=== PATIENT | male | born 1955 | race Caucasian/White ===

== ENCOUNTER 2020-03-21 18:04 | Emergency (ER) | payer MEDICARE, SELFPAY ==
[2020-03-21 18:12] VITALS: BP 152/72; PULSE 105; RESP 16; TEMP 38.5; O2SAT 95; BMI 27.8
--- NOTE | 2020-03-21 18:22 | DI.RAD.S_ITS ---
PROCEDURE: XR CHEST 1V INDICATIONS: suspected sepsis TECHNIQUE: One view of the chest was acquired. COMPARISON: [facility], , CHEST 1 VIEW, 07/27/2015, 21:59. FINDINGS: Surgical changes and devices: None. Lungs and pleura: Lungs are clear. No pleural effusions or pneumothorax. Mediastinum: Mediastinal contours appear normal. Heart size is normal. Remote CABG. Bones and chest wall: No suspicious bony lesions. Overlying soft tissues appear unremarkable. IMPRESSION: Remote CABG. No evidence acute pulmonary process. Dictated by: Bernard Decker M.D. on 03/21/2020 at 18:46 Approved by: Bernard Decker M.D. on 03/21/2020 at 18:47
--- NOTE | 2020-03-21 18:24 | DI.RAD.S_ITS ---
PROCEDURE: XR ELBOW RT MIN 3V INDICATIONS: injured, pain, swelling TECHNIQUE: 3 views of the elbow were acquired. COMPARISON: None. FINDINGS: Bones: No fractures or dislocations. No suspicious bony lesions. Mild degenerative change. Soft tissues: No elbow joint effusion. No suspicious soft tissue calcifications. IMPRESSION: Mild degenerative change. No evidence acute bony abnormality of the right elbow. If clinical suspicion and/or symptoms persist, further assessment with repeat plain films, or advanced imaging (e.g., CT, MRI, or bone scan) may be helpful for further assessment. Dictated by: Bernard Decker M.D. on 03/21/2020 at 18:45 Approved by: Bernard Decker M.D. on 03/21/2020 at 18:46
--- NOTE | 2020-03-21 19:08 | ED.SKABFB ---
HPI - Skin/Abscess/Foreign Bdy General Chief complaint: Skin/Abscess/Foreign Body Stated complaint: large mass swelling R elbow, fever Time Seen by Provider: 03/21/20 18:07 Source: patient Mode of arrival: Ambulatory Limitations: no limitations History of Present Illness HPI narrative: 65-year-old male the history of a heart transplant. Is on anti-rejection medications. Has a history of bursitis in his elbows. States that he bumped his right elbow a couple days ago and since that time has been progressively worsening right elbow swelling and redness. He also having low-grade fever. Came to the emergency department for evaluation. Has not tried anything for symptoms prior to arrival Review of Systems Constitutional Constitutional: Denies fatigue and Reports fever(s) Cardiovascular Cardiovascular: Denies chest pain and Denies dyspnea Respiratory Respiratory: Denies dyspnea Gastrointestinal Gastrointestinal: Denies abdominal pain Musculoskeletal Musculoskeletal: Denies tingling Comments: Swelling the right elbow Integumentary/Breasts Skin/Breast: Denies lesions and Denies rash Neurologic Neurologic: Denies behavioral changes and Denies tingling Psychiatric Psychiatric: Denies behavioral changes Endocrine Endocrine: Denies fatigue Hematologic/Lymphatic Hematologic/Lymphatic: Denies easy bleeding and Denies easy bruising Allergic/Immunologic Allergic/Immunologic: Denies urticaria Patient History Medical History (Updated 03/21/20 @ 21:39 by Alex Darnell DO) CHF (congestive heart failure), NYHA class IV (Inactive) Diarrhea (Inactive) Fever (Inactive) Heart transplant recipient (Acute) Lymphadenopathy, anterior cervical (Inactive) Social History Smoking Status: Former smoker Smoking Status: Former smoker Substance Use Type: does not use Exam Initial Vital Signs Initial Vital Signs: Vital Signs Temperature 101.3 F H 03/21/20 18:12 Pulse Rate 105 H 03/21/20 18:12 Respiratory Rate 16 03/21/20 18:12 Blood Pressure 152/72 H 03/21/20 18:12 Pulse Oximetry 95 03/21/20 18:12 Const General: comfortable Limitations: mental status not altered HENMT Head: normal to inspection and normocephalic Resp Effort & Inspection: normal respiratory effort Cardio Rate: tachycardic GI Inspection: non-distended Skin Other: Mild redness over the right olecranon Neuro General: patient alert and patient awake Cognition: normal cognition Speech: speech normal Extrem General: normal to inspection and capillary refill normal Other: Patient with significant swelling over the right olecranon bursa consistent with bursitis. Psych Appearance: grossly normal and well kempt Scores GCS [place] coma scale eye opening: Spontaneous [place] coma scale verbal response: Orientated [place] coma scale motor response: Obey commands [place] coma scale total score: 15 Course Orders Ordered: ED Orders 03/21/20 18:22 XR chest 1V Stat EKG-12 Lead Stat RT Consult Eval and Treat Now 03/21/20 18:24 XR elbow RT min 3V Stat 03/21/20 19:23 Complete Blood Count AUTO DIFF Stat Comprehensive Metabolic Panel Stat Lactate (Lactic Acid) Stat Lipase Stat Partial Thromboplastin Time Stat Procalcitonin Stat Prothrombin Time INR Stat 03/21/20 19:56 Blood Culture Stat Discontinued Medications Sodium Chloride (Normal Saline 0.9%) 1,000 mls @ 1,000 mls/hr IV BOLUS ONE Stop: 03/21/20 19:21 Last Infusion: 03/21/20 21:13 Dose: 0 mls/hr Documented by: Admin: 03/21/20 19:41 Dose: 1,000 mls/hr Documented by: GAGANDEEP Ceftriaxone Sodium/Dextrose (Rocephin) 1 gm in 50 mls @ 100 mls/hr IV NOW ONE Stop: 03/21/20 19:38 Last Infusion: 03/21/20 20:08 Dose: 0 mls/hr Documented by: Admin: 03/21/20 19:41 Dose: 100 mls/hr Documented by: GAGANDEEP Vancomycin HCl (Vancomycin) 1,000 mg in 200 mls @ 200 mls/hr IV NOW ONE Stop: 03/21/20 20:07 Last Infusion: 03/21/20 21:19 Dose: 0 mls/hr Documented by: Admin: 03/21/20 20:16 Dose: 200 mls/hr Documented by: GAGANDEEP Vital Signs Vital signs: Vital Signs - 8 hr 03/21/20 18:12 03/21/20 20:10 03/21/20 20:30 Temperature 101.3 F H Pulse Rate 105 H 100 H 109 H Respiratory Rate 16 14 36 H Blood Pressure 152/72 H Pulse Oximetry 95 94 95 03/21/20 21:00 03/21/20 21:02 03/21/20 21:04 Temperature Pulse Rate 104 H 106 H 106 H Respiratory Rate 14 24 16 Blood Pressure 151/76 H Pulse Oximetry 94 93 95 MDM - Skin/Abscess/Foreign Bdy Lab Data Attestation: I reviewed the patient's lab results. Result diagrams: 03/21/20 19:23 03/21/20 19:23 Labs: Lab Results 03/21/20 03/21/20 03/21/20 Range/Units 19:23 19:23 19:23 WBC 8.7 (4.5-11.0) X10^3/uL RBC 3.54 L (4.5-5.9) X10^6/uL Hgb 11.8 L (13.5-17.5) g/dL Hct 35.7 L (41-53) % MCV 100.8 H (80-100) fL MCH 33.4 (26-34) PG MCHC 33.1 (30-36) % RDW 14.5 (11.6-14.8) % Plt Count 127 L (150-400) X10^3/uL Neut % (Auto) 84.3 H (50-75) % Lymph % (Auto) 5.2 L (25-40) % [place] % (Auto) 9.1 (3-14) % Eos % (Auto) 0.7 L (2-4) % Baso % (Auto) 0.7 (0-2) % Neut # (Auto) 7300 H (6029-1785) /uL Lymph # (Auto) 500 L (4108-6598) /uL [place] # (Auto) 800 (0-900) /uL Eos # (Auto) 100 (0-450) /uL Baso # (Auto) 100 (0-100) /uL PT 12.2 (10.1-12.7) SECONDS INR 1.1 (0.9-1.3) APTT 31 (26.4-36.2) SECONDS Sodium (137-145) mmol/L Potassium (3.4-5.1) mmol/L Chloride (98-107) mmol/L Carbon Dioxide (22-32) mmol/L BUN (9-20) mg/dL Creatinine (0.66-1.25) mg/dL Estimated GFR (>60) mL/min BUN/Creatinine Ratio (6-22) Glucose (80-110) mg/dL Lactate (0.7-2.1) mmol/L Calcium (8.4-10.2) mg/dL Total Bilirubin (0.2-1.3) mg/dL AST (17-59) IU/L ALT (<50) IU/L Alkaline Phosphatase (38-126) U/L Total Protein (6.3-8.2) g/dL Albumin (3.5-5.0) g/dL Globulin (1.7-4.1) g/dL Albumin/Globulin Ratio (1.0-2.8) Lipase (23-300) U/L Procalcitonin 0.17 (<0.5) ng/mL 03/21/20 03/21/20 Range/Units 19:23 19:23 WBC (4.5-11.0) X10^3/uL RBC (4.5-5.9) X10^6/uL Hgb (13.5-17.5) g/dL Hct (41-53) % MCV (80-100) fL MCH (26-34) PG MCHC (30-36) % RDW (11.6-14.8) % Plt Count (150-400) X10^3/uL Neut % (Auto) (50-75) % Lymph % (Auto) (25-40) % [place] % (Auto) (3-14) % Eos % (Auto) (2-4) % Baso % (Auto) (0-2) % Neut # (Auto) (5807-0571) /uL Lymph # (Auto) (0236-8008) /uL [place] # (Auto) (0-900) /uL Eos # (Auto) (0-450) /uL Baso # (Auto) (0-100) /uL PT (10.1-12.7) SECONDS INR (0.9-1.3) APTT (26.4-36.2) SECONDS Sodium 134 L (137-145) mmol/L Potassium 3.5 (3.4-5.1) mmol/L Chloride 98 (98-107) mmol/L Carbon Dioxide 28 (22-32) mmol/L BUN 20 (9-20) mg/dL Creatinine 1.30 H (0.66-1.25) mg/dL Estimated GFR 55.2 L (>60) mL/min BUN/Creatinine Ratio 15.4 (6-22) Glucose 115 H (80-110) mg/dL Lactate 1.3 (0.7-2.1) mmol/L Calcium 8.9 (8.4-10.2) mg/dL Total Bilirubin 1.6 H (0.2-1.3) mg/dL AST 52 (17-59) IU/L ALT 75 H (<50) IU/L Alkaline Phosphatase 76 (38-126) U/L Total Protein 7.7 (6.3-8.2) g/dL Albumin 4.6 (3.5-5.0) g/dL Globulin 3.1 (1.7-4.1) g/dL Albumin/Globulin Ratio 1.5 (1.0-2.8) Lipase 22 L (23-300) U/L Procalcitonin (<0.5) ng/mL Urine Dip Bedside Urine Glucose Negative Bedside Urine Bilirubin - Negative Bedside Urine Ketone +/- 5 Urine Specific [place] 1.010 Bedside Urine Occult Blood - Negative Bedside Urine pH 7.0 Bedside Urine Protein - Negative Bedside Urine Urobilinogen - Negative Bedside Urine Nitrite - Negative Bedside Urine Leukocytes - Negative Esterase Imaging Data Extremity x-ray #1: Radiologist's Impression: [address] [address] XRay Report Signed Patient: Ben Montgomery LMR#: [id number] : 4Acct:[id number] Age/Sex: 65 / MDate of Service: 03/21/20 Loc: ED Accession Number: [id number] Procedure: XR elbow RT min 3V Ordering Provider: Alex Darnell D.O. PROCEDURE: XR ELBOW RT MIN 3V INDICATIONS: injured, pain, swelling TECHNIQUE: 3 views of the elbow were acquired. COMPARISON: None. FINDINGS: Bones: No fractures or dislocations. No suspicious bony lesions. Mild degenerative change. Soft tissues: No elbow joint effusion. No suspicious soft tissue calcifications. IMPRESSION: Mild degenerative change. No evidence acute bony abnormality of the right elbow. If clinical suspicion and/or symptoms persist, further assessment with repeat plain films, or advanced imaging (e.g., CT, MRI, or bone scan) may be helpful for further assessment. Dictated by: Bernard Decker M.D. on 03/21/2020 at 18:45 Approved by: Bernard Decker M.D. on 03/21/2020 at 18:46 Chest x-ray: Radiologist's Impression: [address] [address] XRay Report Signed Patient: Ben Montgomery LMR#: [id number] : 4Acct:[id number] Age/Sex: 65 / MDate of Service: 03/21/20 Loc: ED Accession Number: [id number] Procedure: XR chest 1V Ordering Provider: Alex Darnell D.O. PROCEDURE: XR CHEST 1V INDICATIONS: suspected sepsis TECHNIQUE: One view of the chest was acquired. COMPARISON: [facility], CHEST 1 VIEW, 07/27/2015, 21:59. FINDINGS: Surgical changes and devices: None. Lungs and pleura: Lungs are clear. No pleural effusions or pneumothorax. Mediastinum: Mediastinal contours appear normal. Heart size is normal. Remote CABG. Bones and chest wall: No suspicious bony lesions. Overlying soft tissues appear unremarkable. IMPRESSION: Remote CABG. No evidence acute pulmonary process. Dictated by: Bernard Decker M.D. on 03/21/2020 at 18:46 Approved by: Bernard Decker M.D. on 03/21/2020 at 18:47 ECG Data Attestation: I personally reviewed and interpreted this ECG as follows: Prior ECG tracings: not available for review Interpretation: Sinus tachycardia Ventricular rate 104 Normal axis Normal QRS Normal QTC No ST T wave changes MDM Narrative Medical decision making narrative: Patient is immunocompromised given his heart transplant status. Was tachycardic, febrile, has what appears to be a bursitis over his right elbow. Given the rest of his vital sign results I do suspect that this is a septic bursitis. I have no other source of infection for the patient. Initially had a difficult time convincing the patient that he needed a IV in broad-spectrum antibiotics. We did discuss his risks given his heart transplant. I did discuss the case with Dr. Glover with the cardiology transplant service at the [facility] who agrees that the patient should have lab works and broad-spectrum antibiotics and cultures obtained. He also agrees the patient should be transferred to their facility for further evaluation. Started vancomycin and Rocephin. Will hold on any drainage of the bursa further concern of potentially causing worsening problems and introducing infection to the area. I did discuss this with Dr. Glover who acknowledge that we would wait for him to arrived at their facility before this is performed. I did discuss the need for the transfer with the patient. Patient stated that he was not going to be transferred by ambulance. He states that he was either going to drive on his own or not go at all. We did discuss the risks and benefits of this. I feel that it is most informed for him to arrive at the facility that can handle his issues and has a transplant service so I will all the patient drive by private vehicle. His IV was removed. He did receive his antibiotics prior to being discharged. He was given instructions on where to arrive. He was alert oriented x3. My. Has the capacity make decisions. GCS 15. Discharge Plan Departure Patient Disposition: [facility] Clinical Impression: Sepsis, Bursitis
[2020-03-21 19:35] LABS: Add Manual Diff / Slide Review NO; Basophils Absolute Auto 100 /uL (0-100); Basophils Percent Auto 0.7 % (0-2); Eosinophils Absolute Auto 100 /uL (0-450); Eosinophils Percent Auto 0.7 % (2-4); Hematocrit 35.7 % (41-53); Hemoglobin 11.8 g/dL (13.5-17.5); Lymphocytes Absolute Auto 500 /uL (1100-4500); Lymphocytes Percent Auto 5.2 % (25-40); Mean Corpuscular HGB Conc 33.1 % (30-36); Mean Corpuscular Hemoglobin 33.4 PG (26-34); Mean Corpuscular Volume 100.8 fL (80-100); Monocytes Absolute Auto 800 /uL (0-900); Monocytes Percent Auto 9.1 % (3-14); Neutrophils Absolute Auto 7300 /uL (1500-7000); Neutrophils Percent Auto 84.3 % (50-75); Platelet Count 127 X10^3/uL (150-400); Red Blood Cell Count 3.54 X10^6/uL (4.5-5.9); Red Cell Distribution Width 14.5 % (11.6-14.8); White Blood Cell Count 8.7 X10^3/uL (4.5-11.0)
[2020-03-21] MEDS: CEFTRIAXONE 1 GM/50 ML FROZ.PIGGY IV (19:41)
[2020-03-21] MEDS: SODIUM CHLORIDE 0.9% 1,000 ML 1000 ML IV (19:41)
[2020-03-21 19:46] LABS: INR 1.1 (0.9-1.3); Prothrombin Time 12.2 SECONDS (10.1-12.7)
[2020-03-21 19:48] LABS: PTT Partial Thromboplastin Tim 31 SECONDS (26.4-36.2)
[2020-03-21 19:51] LABS: Lactate (Lactic Acid) 1.3 mmol/L (0.7-2.1)
[2020-03-21 19:52] LABS: Alanine Aminotransferase 75 IU/L (<50); Albumin 4.6 g/dL (3.5-5.0); Albumin Globulin Ratio 1.5 (1.0-2.8); Alkaline Phosphatase 76 U/L (38-126); Aspartate Aminotransferase 52 IU/L (17-59); BUN Creatinine Ratio 15.4 (6-22); Bilirubin Total 1.6 mg/dL (0.2-1.3); Blood Urea Nitrogen 20 mg/dL (9-20); Calcium 8.9 mg/dL (8.4-10.2); Carbon Dioxide 28 mmol/L (22-32); Chloride 98 mmol/L (98-107); Estimated Glomerular Filt Rate 55.2 mL/min (>60); Globulin 3.1 g/dL (1.7-4.1); Glucose 115 mg/dL (80-110); HEMOLYSIS 27 (0-50); Lipase 22 U/L (23-300); Potassium 3.5 mmol/L (3.4-5.1); Sodium 134 mmol/L (137-145); Total Protein 7.7 g/dL (6.3-8.2)
[2020-03-21 20:07] LABS: Procalcitonin 0.17 ng/mL (<0.5)
[2020-03-21 20:10] VITALS: PULSE 100; RESP 14; O2SAT 94
[2020-03-21] MEDS: VANCOMYCIN 1,000 MG/200 ML PIGGYBACK 200 MG IV (20:16)
[2020-03-21 20:30] VITALS: PULSE 109; RESP 36; O2SAT 95
[2020-03-21 21:00] VITALS: PULSE 104; RESP 14; O2SAT 94
[2020-03-21 21:02] VITALS: PULSE 106; RESP 24; O2SAT 93
[2020-03-21 21:04] VITALS: BP 151/76; PULSE 106; RESP 16; O2SAT 95
[2020-03-21 21:53] LABS: COVID19 -Nasal RAPID Negative (Negative)
== END 2020-03-21 22:26 | disposition short-term general hospital (02) ==
PROVIDERS: Emergency Provider Emergency Medicine
DX: M70.31 Other bursitis of elbow, right elbow (principal); R00.0 Tachycardia, unspecified; Z94.1 Heart transplant status
CPT/HCPCS: 36415; 71045; 73080; 80053; 81003; 83605; 83690; 84145; 85025; 85610; 85730; 87040; 87635; 93005; 93010; 96365; 96367; 99284

== ENCOUNTER 2021-06-17 19:08 | Emergency (ER) | payer MEDICARE, SELFPAY ==
[2021-06-17 19:24] VITALS: BP 163/95; PULSE 88; RESP 17; TEMP 36.5; O2SAT 97; BMI 29.1
--- NOTE | 2021-06-17 19:26 | DI.RAD.S_ITS ---
PROCEDURE: XR CHEST 1V INDICATIONS: chest pain TECHNIQUE: One view of the chest was acquired. COMPARISON: [facility], CR, XR CHEST 1V, 03/21/2020, 18:17. FINDINGS: Surgical changes and devices: Sternotomy wires. 1.5 cm Tubular/linear density projecting in the left upper hemithorax of unknown etiology although unchanged since 03/21/20. Lungs and pleura: Lungs are clear. No pleural effusions or pneumothorax. Mediastinum: Mediastinal contours appear normal. Heart size is normal. Bones and chest wall: No suspicious bony lesions. Overlying soft tissues appear unremarkable. IMPRESSION: No acute disease. No interval change. Dictated by: Sunny Negron M.D. on 06/17/2021 at 20:06 Approved by: Sunny Negron M.D. on 06/17/2021 at 20:07
[2021-06-17 19:54] LABS: Add Manual Diff / Slide Review NO; Basophils Absolute Auto 0 /uL (0-100); Basophils Percent Auto 0.6 % (0-2); Eosinophils Absolute Auto 100 /uL (0-450); Eosinophils Percent Auto 2.1 % (2-4); Hematocrit 42.6 % (41-53); Lymphocytes Absolute Auto 900 /uL (1100-4500); Lymphocytes Percent Auto 19.6 % (25-40); Mean Corpuscular HGB Conc 32.8 % (30-36); Mean Corpuscular Hemoglobin 33.1 PG (26-34); Mean Corpuscular Volume 100.9 fL (80-100); Monocytes Absolute Auto 600 /uL (0-900); Monocytes Percent Auto 13.6 % (3-14); Neutrophils Absolute Auto 2800 /uL (1500-7000); Neutrophils Percent Auto 64.1 % (50-75); Platelet Count 128 X10^3/uL (150-400); Red Blood Cell Count 4.22 X10^6/uL (4.5-5.9); Red Cell Distribution Width 14.7 % (11.6-14.8); White Blood Cell Count 4.4 X10^3/uL (4.5-11.0)
[2021-06-17 20:03] LABS: Alanine Aminotransferase 78 IU/L (<50); Albumin 4.7 g/dL (3.5-5.0); Albumin Globulin Ratio 1.6 (1.0-2.8); Alkaline Phosphatase 72 U/L (38-126); Aspartate Aminotransferase 70 IU/L (17-59); Blood Urea Nitrogen 23 mg/dL (9-20); Calcium 9.3 mg/dL (8.4-10.2); Carbon Dioxide 29 mmol/L (22-32); Chloride 108 mmol/L (98-107); Creatine Kinase 130 U/L (55-170); Estimated Glomerular Filt Rate 45.6 mL/min (>60); Glucose 87 mg/dL (80-110); HEMOLYSIS < 15 (0-50); Lipase 57 U/L (23-300); Potassium 4.5 mmol/L (3.4-5.1); Sodium 144 mmol/L (137-145); Total Protein 7.7 g/dL (6.3-8.2)
[2021-06-17 20:14] LABS: Troponin I < 0.012 ng/mL (0.01-0.034)
[2021-06-17 20:17] LABS: CKMB % Relative Index 1.9 % (1.5-5.0); Creatine Kinase MB 2.44 ng/mL (<2.37)
[2021-06-17 21:35] VITALS: BP 159/90; O2SAT 96
[2021-06-17 22:43] VITALS: BP 149/78; PULSE 83; RESP 16; O2SAT 96
--- NOTE | 2021-06-17 23:56 | ED_ITS ---
HPI - Chest Pain General Chief Complaint: Chest Pain Stated Complaint: chest pain, hx of heart transplant Time Seen by Provider: 06/17/21 23:55 Source: patient Mode of arrival: Ambulatory Limitations: no limitations History of Present Illness HPI narrative: This is a 66-year-old male comes in with complaint of left arm pain. Swelling that occurred after getting his hand stuck and having a twisting motion while p ronating against a hard object having a snap at the elbow he developed quite a bit of swelling, bruising and pain that has slowly subsided. There is a large lump that has never resolved. Patient had what like a large hematoma that has been slowly decreasing in size but is still present and mildly tender. He still also has some ecchymosis on the underside of his arm. Has normal range of motion he has not appreciate any new weakness. Occasionally some tingling. Patient states he does have some discomfort in that left arm and saw his primary care who told him he snapped tendon. Patient also notes that he has had a little bit of chest discomfort at times. He states sometimes it seems to be coming up from the left arm to his chest. 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 Patient had aspirin daily. He sees his heart transplant physician at the [facility] on Wednesday. Related Data Allergies Allergy/AdvReac Type Severity Reaction Status Date / Time Iodinated Contrast Media AdvReac Verified 06/17/21 19:23 Review of Systems Review of Systems ROS Unobtainable: All systems reviewed & are unremarkable except as noted in HPI and below Patient History Medical History CHF (congestive heart failure), NYHA class IV Diarrhea Fever Heart transplant recipient Lymphadenopathy, anterior cervical Social History Smoking Status: Former smoker Smoking Status: Former smoker alcohol intake frequency: a few times a week Alcohol type: beer Substance Use Type: does not use Exam Narrative Exam Narrative: GENERAL: Alert and oriented x three, male in mild distress. HEENT: Head normocephalic, atraumatic, EOMI, pupils reactive, face symmetric, moist mucous membranes NECK: Supple, full range of motion CARDIOVASCULAR: Regular rate and rhythm without murmurs, rubs or gallops. RESPIRATORY: Breath sounds equal bilaterally, no wheezes rales or rhonchi. ABDOMEN: Soft, nontender. Normoactive bowel sounds all 4 quadrants. No guarding or rebound, rigidity, no mass : No CVA tenderness EXTREMITIES: Normal range of motion, no clubbing or edema. Neurovascularly intact. Patient has a large knot over the proximal forearm close to the insertion of the tendon on the dorsum. There is some ecchymotic discoloration and the area is nontender, somewhat hard and seems most consistent with hematoma but may also be attended. Patient has normal range of motion without any weakne ss. He has full range of motion except for his 5th finger which he states is perpetually is flexed secondary to Dupuytren's. Patient also has ecchymosis on the palmar side of his forearm that appears to be in the later stages healing. He has no other tenderness. 2+ radial pulses bilaterally. Good test automation architect bilaterally. NEUROLOGICAL: Cranial nerves II through XII grossly intact. Moving all extrem ities SKIN: Warm, dry, no petechiae, no rashes or lesions otherwise noted. Initial Vital Signs Initial Vital Signs: Vital Signs Temperature 97.7 F 06/17/21 19:24 Pulse Rate 88 06/17/21 19:24 Respiratory Rate 17 06/17/21 19:24 Blood Pressure 163/95 H 06/17/21 19:24 Pulse Oximetry 97 06/17/21 19:24 Course Orders Ordered: ED Orders 06/17/21 23:59 Troponin I Stat Vital Signs Vital signs: Vital Signs - 8 hr 06/18/21 00:41 06/18/21 00:42 Pulse Rate 78 79 Respiratory Rate 13 Blood Pressure 159/93 H Pulse Oximetry 95 96 MDM - Chest Pain Lab Data Result diagrams: 06/17/21 19:41 06/17/21 19:41 Labs: Lab Results 06/17/21 06/17/21 06/17/21 Range/Units 19:41 19:41 23:59 WBC 4.4 L (4.5-11.0) X10^3/uL RBC 4.22 L (4.5-5.9) X10^6/uL Hgb 14.0 (13.5-17.5) g/dL Hct 42.6 (41-53) % MCV 100.9 H (80-100) fL MCH 33.1 (26-34) PG MCHC 32.8 (30-36) % RDW 14.7 (11.6-14.8) % Plt Count 128 L (150-400) X10^3/uL Neut % (Auto) 64.1 (50-75) % Lymph % (Auto) 19.6 L (25-40) % [place] % (Auto) 13.6 (3-14) % Eos % (Auto) 2.1 (2-4) % Baso % (Auto) 0.6 (0-2) % Neut # (Auto) 2800 (4019-7597) /uL Lymph # (Auto) 900 L (3900-9358) /uL [place] # (Auto) 600 (0-900) /uL Eos # (Auto) 100 (0-450) /uL Baso # (Auto) 0 (0-100) /uL Sodium 144 (137-145) mmol/L Potassium 4.5 (3.4-5.1) mmol/L Chloride 108 H (98-107) mmol/L Carbon Dioxide 29 (22-32) mmol/L BUN 23 H (9-20) mg/dL Creatinine 1.53 H (0.66-1.25) mg/dL Estimated GFR 45.6 L (>60) mL/min BUN/Creatinine Ratio 15.0 (6-22) Glucose 87 (80-110) mg/dL Calcium 9.3 (8.4-10.2) mg/dL Total Bilirubin 1.0 (0.2-1.3) mg/dL AST 70 H (17-59) IU/L ALT 78 H (<50) IU/L Alkaline Phosphatase 72 (38-126) U/L Total Creatine Kinase 130 (55-170) U/L CK-MB (CK-2) 2.44 H (<2.37) ng/mL CK-MB (CK-2) Rel Index 1.9 (1.5-5.0) % Troponin I < 0.012 < 0.012 (0.01-0.034) ng/mL Total Protein 7.7 (6.3-8.2) g/dL Albumin 4.7 (3.5-5.0) g/dL Globulin 3.0 (1.7-4.1) g/dL Albumin/Globulin Ratio 1.6 (1.0-2.8) Lipase 57 (23-300) U/L Imaging Data Chest x-ray: Radiologist's Impression: [address] [address] XRay Report Signed Patient: Ben Montgomery MR#: [id number] : 1955 Acct:[id number] Age/Sex: 66 / M Date of Service: 06/17/21 Loc: ED Accession Number: [id number] ?? Procedure: XR chest 1V Ordering Provider: Yuli Pope D.O. PROCEDURE:? XR CHEST 1V ? INDICATIONS:? chest pain ? TECHNIQUE:? One view of the chest was acquired.? ? COMPARISON:? [facility], CR, XR CHEST 1V, 03/21/2020, 18:17. ? FINDINGS:? ? Surgical changes and devices:? Sternotomy wires.? 1.5 cm Tubular/linear density projecting in the left upper hemithorax of unknown etiology although unchanged since 03/21/20. ? Lungs and pleura:? Lungs are clear.? No pleural effusions or pneumothorax.? ? Mediastinum:? Mediastinal contours appear normal.? Heart size is normal.? ? Bones and chest wall:? No suspicious bony lesions.? Overlying soft tissues appear unremarkable.? ? IMPRESSION:? No acute disease.? No interval change. ? Dictated by: Sunny Negron M.D. on 06/17/2021 at 20:06 ? ? Approved by: Sunny Negron M.D. on 06/17/2021 at 20:07? ECG Data Attestation: I personally reviewed and interpreted this ECG as follows: Interpretation: Sinus rhythm rate 89 AL 162 QRS 82 and QTC of 423. No acute ST changes appreciated. EKG 2. Rate of 78 AL 176 QRS of 90 QTC of 428. No acute ST changes appreciated. MDM Narrative Medical decision making narrative: This is a 66-year-old male who comes emergency department complaint of chest pain but also complained of some extremity pain. Patient had a injury to his forearm and was told that he likely injury to tendon or ligament or snapped the muscle belly. Patient does have a lump that seems more consistent with hematoma but could possibly and is in the right location for injury to the muscle or tendon itself. Patient has been following for this. He noted some mild discomfort in his chest intermittently but not persistently in his somewhat atypical. He seems more focused on his upper extremity today. Labs and EKG do not show acute changes. Chest x-ray does not show any major changes. He has short-term follow-up with his heart transplant team and at this time he would like to return home. Return precautions were discussed with patient. All questions answered. Discharge Plan Departure Patient Disposition: Home Clinical Impression: Atypical chest pain, Traumatic hematoma of left forearm Instructions: DI for Atypical Chest Pain Activity Restrictions/Additional Instructions: Follow-up with your heart transplant team at your scheduled appointment on Wednesday. The spot on your arm is likely a hematoma although this is an appropriate location to have an injured tendon but typically patients will have weakness or more difficulty with movement. It would be appropriate to follow-up with orthopedic surgery if you notice that your having issues. Referral is included below. Please return for new or worsening chest pain, shortness of breath, worsening swelling of her arm, new swelling of your arm or hand, weakness or difficulty with movement or other new or concerning symptoms. Referrals: Piyush Romero MD [Physician] -
[2021-06-18 00:41] VITALS: PULSE 78; O2SAT 95
[2021-06-18 00:42] VITALS: BP 159/93; PULSE 79; RESP 13; O2SAT 96
[2021-06-18 00:42] LABS: Troponin I < 0.012 ng/mL (0.01-0.034)
--- NOTE | 2021-06-18 01:02 | PC.NURSE ---
Patient reports hx of heart transplant. 3 days chest dull ache, so bad today that he thought he might pass out in grocery store. Patient is pain free at this time.
== END 2021-06-18 01:07 | disposition home or self-care (01) ==
PROVIDERS: Emergency Provider Emergency Medicine
DX: R07.89 Other chest pain (principal); S50.02XA Contusion of left elbow, initial encounter; X50.1XXA Overexertion from prolonged static or awkward postures, initial encounter; Z94.1 Heart transplant status; Z95.0 Presence of cardiac pacemaker
CPT/HCPCS: 36415; 71045; 80053; 82550; 82553; 83690; 84484; 85025; 93005; 99284

== ENCOUNTER 2022-12-27 02:35 | Emergency (ER) | payer MEDICARE, SELFPAY ==
[2022-12-27] VITALS (8 sets, daily range): BP systolic 141–189; BP diastolic 65–93; PULSE 70–86; RESP 9–22; O2SAT 92–100
--- NOTE | 2022-12-27 02:52 | ED.GENADULT ---
HPI - General Adult General Chief complaint: Dizziness Stated complaint: Heart Issue Time Seen by Provider: 12/27/22 02:45 Source: patient and family Mode of arrival: Ambulatory History of Present Illness HPI narrative: Patient is a 67-year-old male. He is a heart transplant recipient. Is here for evaluation of what he describes as dizziness and being unsteady on his feet. He is not having chest pain no shortness of breath. No sinus congestion. No sore throat. No headache. He states that he has had some fullness in his left ear and some decreased hearing over the past day or so. Yesterday he states that he was at work and he felt somewhat dizzy. He does somewhat describe it as a room spinning sensation and then other times more just a lightheadedness. He actually had to come home from work and laid down on the couch. No upper lower extremity tingling or weakness. This evening he got up to go to the bathroom and he states he could not walk straight. Is also very nauseous. It is somewhat positional. Related Data Previous Rx's Medication Instructions Recorded meclizine 25 mg tablet 25 mg PO BID PRN dizziness #20 tabs 12/27/22 Allergies Allergy/AdvReac Type Severity Reaction Status Date / Time Iodinated Contrast Media AdvReac Verified 06/17/21 19:23 Review of Systems Constitutional Constitutional: Reports system reviewed and no additional complaints, except as documented ENT Ears, Nose, Mouth, and Throat: Reports system reviewed and no additional complaints, except as documented Cardiovascular Cardiovascular: Reports system reviewed and no additional complaints, except as documented Respiratory Respiratory: Reports system reviewed and no additional complaints, except as documented Gastrointestinal Gastrointestinal: Reports system reviewed and no additional complaints, except as documented Integumentary/Breasts Skin/Breast: Reports system reviewed and no additional complaints, except as documented Neurologic Neurologic: Reports system reviewed and no additional complaints, except as documented Patient History Medical History CHF (congestive heart failure), NYHA class IV Diarrhea Fever Heart transplant recipient Lymphadenopathy, anterior cervical Social History Smoking Status: Former smoker Smoking Status: Former smoker alcohol intake frequency: a few times a week Alcohol type: beer Substance Use Type: does not use Exam Initial Vital Signs Initial Vital Signs: Vital Signs Pulse Rate 80 12/27/22 02:44 Respiratory Rate 22 12/27/22 02:44 Blood Pressure 189/93 H 12/27/22 02:44 Pulse Oximetry 100 12/27/22 02:44 Oxygen Delivery Method Room Air 12/27/22 02:44 HENNM Head: normal to inspection and normocephalic Ears: TM's normal bilaterally Face and sinus: normal facial exam Mouth: oral mucosae normal Chest Chest: normal inspection of the chest Resp Auscultation: clear to auscultation bilaterally Percussion: percussion normal Cardio Rate: regular rate Skin General: no rashes or lesions noted Neuro General: patient alert, patient awake, patient oriented x3 and moves all extremities Speech: speech normal Gait: normal gait Extrem General: capillary refill normal Course Orders Ordered: ED Orders 12/27/22 02:40 Complete Blood Count AUTO DIFF Stat Comprehensive Metabolic Panel Stat Lipase Stat Magnesium Stat Troponin & CK Cardiac Panel Stat 12/27/22 02:51 EKG-12 Lead Stat 12/27/22 03:30 Respiratory Panel (Film Array) Stat Discontinued Medications Meclizine HCl (Meclizine Hcl 12.5 Mg Tablet) 25 mg PO NOW ONE Stop: 12/27/22 02:53 Last Admin: 12/27/22 03:28 Dose: 25 mg Documented By: LARRY Vital Signs Vital signs: Vital Signs - 8 hr 12/27/22 02:44 12/27/22 02:52 12/27/22 03:00 Pulse Rate 80 72 71 Respiratory Rate 22 11 L 16 Blood Pressure 189/93 H Pulse Oximetry 100 Oxygen Delivery Method Room Air 12/27/22 03:30 12/27/22 04:00 12/27/22 04:30 Pulse Rate 70 78 85 Respiratory Rate 9 L 17 16 Blood Pressure Pulse Oximetry 95 94 Oxygen Delivery Method 12/27/22 04:48 12/27/22 04:48 12/27/22 05:00 Pulse Rate 86 85 Respiratory Rate 13 19 Blood Pressure 141/65 H Pulse Oximetry 95 92 Oxygen Delivery Method Medical Decision Making Lab Data Lab results reviewed: Yes I reviewed the patient's lab results. 12/27/22 02:40 12/27/22 02:40 Labs: Lab Results 12/27/22 12/27/22 12/27/22 Range/Units 02:40 02:40 02:40 WBC 6.0 (4.5-11.0) X10^3/uL RBC 3.95 L (4.5-5.9) X10^6/uL Hgb 12.7 L (13.5-17.5) g/dL Hct 38.5 L (41-53) % MCV 97.4 (80-100) fL MCH 32.3 (26-34) PG MCHC 33.1 (30-36) % RDW 15.0 H (11.6-14.8) % Plt Count 130 L (150-400) X10^3/uL Neut % (Auto) 46.2 L (50-75) % Lymph % (Auto) 35.9 (25-40) % [place] % (Auto) 14.6 H (3-14) % Eos % (Auto) 2.8 (2-4) % Baso % (Auto) 0.5 (0-2) % Neut # (Auto) 2800 (8953-7379) /uL Lymph # (Auto) 2200 (7202-9904) /uL [place] # (Auto) 900 (0-900) /uL Eos # (Auto) 200 (0-450) /uL Baso # (Auto) 0 (0-100) /uL Sodium 139 (137-145) mmol/L Potassium 4.3 (3.4-5.1) mmol/L Chloride 105 (98-107) mmol/L Carbon Dioxide 24 (22-32) mmol/L BUN 15 (9-20) mg/dL Creatinine 1.19 (0.66-1.25) mg/dL Estimated GFR > 60 (>60) mL/min BUN/Creatinine Ratio 12.6 (6-22) Glucose 122 H (80-110) mg/dL Calcium 9.2 (8.4-10.2) mg/dL Magnesium 2.0 (1.6-2.3) mg/dL Total Bilirubin 0.9 (0.2-1.3) mg/dL AST 41 (17-59) IU/L ALT 44 (<50) IU/L Alkaline Phosphatase 79 (38-126) U/L Total Creatine Kinase 223 H (55-170) U/L CK-MB (CK-2) TNP CK-MB (CK-2) Rel Index TNP Troponin I < 0.012 (0.01-0.034) ng/mL Total Protein 7.6 (6.3-8.2) g/dL Albumin 4.7 (3.5-5.0) g/dL Globulin 2.9 (1.7-4.1) g/dL Albumin/Globulin Ratio 1.6 (1.0-2.8) Lipase 41 (23-300) U/L Chlamy pneumoniae PCR (Not Detect) Adenovirus (PCR) (Not Detect) B. pertussis DNA (PCR) (Not Detecte) B.parapertussis DNA PCR (Not Detecte) Coronavirus OC43 (PCR) (Not Detect) Coronavirus HKU1 (PCR) (Not Detect) Coronavirus 229E (PCR) (Not Detect) SARS-CoV-2 (PCR) (Not Detecte) Coronavirus NL63 (PCR) (Not Detect) Human Metapneumovir PCR (Not Detect) Influenza Type A (PCR) (Not Detect) Influenza Type B (PCR) (Not Detect) M. pneumoniae (PCR) (Not Detect) Parainfluenza 1 (PCR) (Not Detect) Parainfluenza 2 (PCR) (Not Detect) Parainfluenza 3 (PCR) (Not Detect) Parainfluenza 4 (PCR) (Not Detect) RSV (PCR) (Not Detect) Entero/Rhino (PCR) (Not Detect) 12/27/22 Range/Units 03:30 WBC (4.5-11.0) X10^3/uL RBC (4.5-5.9) X10^6/uL Hgb (13.5-17.5) g/dL Hct (41-53) % MCV (80-100) fL MCH (26-34) PG MCHC (30-36) % RDW (11.6-14.8) % Plt Count (150-400) X10^3/uL Neut % (Auto) (50-75) % Lymph % (Auto) (25-40) % [place] % (Auto) (3-14) % Eos % (Auto) (2-4) % Baso % (Auto) (0-2) % Neut # (Auto) (0828-5037) /uL Lymph # (Auto) (1218-9694) /uL [place] # (Auto) (0-900) /uL Eos # (Auto) (0-450) /uL Baso # (Auto) (0-100) /uL Sodium (137-145) mmol/L Potassium (3.4-5.1) mmol/L Chloride (98-107) mmol/L Carbon Dioxide (22-32) mmol/L BUN (9-20) mg/dL Creatinine (0.66-1.25) mg/dL Estimated GFR (>60) mL/min BUN/Creatinine Ratio (6-22) Glucose (80-110) mg/dL Calcium (8.4-10.2) mg/dL Magnesium (1.6-2.3) mg/dL Total Bilirubin (0.2-1.3) mg/dL AST (17-59) IU/L ALT (<50) IU/L Alkaline Phosphatase (38-126) U/L Total Creatine Kinase (55-170) U/L CK-MB (CK-2) CK-MB (CK-2) Rel Index Troponin I (0.01-0.034) ng/mL Total Protein (6.3-8.2) g/dL Albumin (3.5-5.0) g/dL Globulin (1.7-4.1) g/dL Albumin/Globulin Ratio (1.0-2.8) Lipase (23-300) U/L Chlamy pneumoniae PCR Not detected (Not Detect) Adenovirus (PCR) Not detected (Not Detect) B. pertussis DNA (PCR) Not detected (Not Detecte) B.parapertussis DNA PCR Not detected (Not Detecte) Coronavirus OC43 (PCR) Not detected (Not Detect) Coronavirus HKU1 (PCR) Not detected (Not Detect) Coronavirus 229E (PCR) Not detected (Not Detect) SARS-CoV-2 (PCR) Not detected (Not Detecte) Coronavirus NL63 (PCR) Not detected (Not Detect) Human Metapneumovir PCR Not detected (Not Detect) Influenza Type A (PCR) Not detected (Not Detect) Influenza Type B (PCR) Not detected (Not Detect) M. pneumoniae (PCR) Not detected (Not Detect) Parainfluenza 1 (PCR) Not detected (Not Detect) Parainfluenza 2 (PCR) Not detected (Not Detect) Parainfluenza 3 (PCR) Not detected (Not Detect) Parainfluenza 4 (PCR) Not detected (Not Detect) RSV (PCR) Not detected (Not Detect) Entero/Rhino (PCR) Not detected (Not Detect) ECG Data Attestation: I personally reviewed and interpreted this ECG as follows: Interpretation: Sinus rhythm Ventricular rate is 71 Normal axis Normal QRS has a normal QTC No ST T wave changes MDM Narrative Medical decision making narrative: Patient did state that he felt better after the meclizine. His symptoms did seem to be positional. I do suspect peripheral vertigo. Low suspicion for cardiac etiology. Not having any ectopy. Labs unremarkable. Will discharge home with a prescription for meclizine. Instructions to contact his primary doctor for follow-up. Is given return precautions. He expressed understanding and agreement. Discharge Plan Departure Patient Disposition: Home Clinical Impression: Dizziness Instructions: DI for Dizziness-Nonvertigo Activity Restrictions/Additional Instructions: I recommend that you continue to take all of your medications as directed and keep all of your scheduled medical appointments. I also recommend that you look up a video for what is called the Natasha maneuver. This can be helpful with potentially improving your presenting symptoms this evening. Return to the emergency department for new symptoms. Prescriptions: New meclizine 25 mg tablet 25 mg PO BID PRN (Reason: dizziness) Qty: 20 0RF Referrals: Stan Chang MD [Physician] - Stand Alone Forms: Patient Portal/API
[2022-12-27 02:53] LABS: Add Manual Diff / Slide Review NO; Basophils Absolute Auto 0 /uL (0-100); Basophils Percent Auto 0.5 % (0-2); Eosinophils Absolute Auto 200 /uL (0-450); Eosinophils Percent Auto 2.8 % (2-4); Hematocrit 38.5 % (41-53); Hemoglobin 12.7 g/dL (13.5-17.5); Lymphocytes Absolute Auto 2200 /uL (1100-4500); Lymphocytes Percent Auto 35.9 % (25-40); Mean Corpuscular HGB Conc 33.1 % (30-36); Mean Corpuscular Hemoglobin 32.3 PG (26-34); Mean Corpuscular Volume 97.4 fL (80-100); Monocytes Absolute Auto 900 /uL (0-900); Monocytes Percent Auto 14.6 % (3-14); Neutrophils Absolute Auto 2800 /uL (1500-7000); Neutrophils Percent Auto 46.2 % (50-75); Platelet Count 130 X10^3/uL (150-400); Red Blood Cell Count 3.95 X10^6/uL (4.5-5.9)
[2022-12-27 03:06] LABS: Alanine Aminotransferase 44 IU/L (<50); Albumin 4.7 g/dL (3.5-5.0); Albumin Globulin Ratio 1.6 (1.0-2.8); Alkaline Phosphatase 79 U/L (38-126); Aspartate Aminotransferase 41 IU/L (17-59); BUN Creatinine Ratio 12.6 (6-22); Bilirubin Total 0.9 mg/dL (0.2-1.3); Blood Urea Nitrogen 15 mg/dL (9-20); Calcium 9.2 mg/dL (8.4-10.2); Carbon Dioxide 24 mmol/L (22-32); Chloride 105 mmol/L (98-107); Estimated Glomerular Filt Rate > 60 mL/min (>60); Globulin 2.9 g/dL (1.7-4.1); Glucose 122 mg/dL (80-110); HEMOLYSIS < 15 (0-50); Lipase 41 U/L (23-300); Potassium 4.3 mmol/L (3.4-5.1); Sodium 139 mmol/L (137-145); Total Protein 7.6 g/dL (6.3-8.2)
[2022-12-27 03:18] LABS: Creatine Kinase 223 U/L (55-170)
[2022-12-27] MEDS: MECLIZINE HCL 12.5 MG TABLET 25 MG PO (03:28)
[2022-12-27 03:31] LABS: Troponin I < 0.012 ng/mL (0.01-0.034)
[2022-12-27 04:26] LABS: Adenovirus Not Detected (Not Detect); B. parapertussis Not Detected (Not Detecte); Bordetella pertussis Not Detected (Not Detecte); Chlamydophila pneumoniae Not Detected (Not Detect); Coronavirus 229E Not Detected (Not Detect); Coronavirus HKU1 Not Detected (Not Detect); Coronavirus NL 63 Not Detected (Not Detect); Coronavirus OC43 Not Detected (Not Detect); Human Metapneumovirus Not Detected (Not Detect); Human Rhinovirus/Enterovirus Not Detected (Not Detect); Influenza A Not Detected (Not Detect); Influenza B Not Detected (Not Detect); Mycoplasma pneumoniae Not Detected (Not Detect); Parainfluenza Virus 1 Not Detected (Not Detect); Parainfluenza Virus 2 Not Detected (Not Detect); Parainfluenza Virus 3 Not Detected (Not Detect); Parainfluenza Virus 4 Not Detected (Not Detect); Respiratory Syncytial Virus Not Detected (Not Detect); SARS- CoV-2 Not Detected (Not Detecte)
== END 2022-12-27 05:32 | disposition home or self-care (01) ==
PROVIDERS: Emergency Provider Emergency Medicine
DX: R42 Dizziness and giddiness (principal); R07.9 Chest pain, unspecified; Z20.822 Contact with and (suspected) exposure to COVID-19
CPT/HCPCS: 36415; 80053; 82550; 83690; 83735; 84484; 85025; 87633; 93005; 93010; 99283; 99284

== ENCOUNTER → 2023-01-01 14:14 | Outpatient (CLI) | payer MEDICARE, SELFPAY ==
--- NOTE | 2023-01-01 14:22 | DI.CT.S_ITS ---
PROCEDURE: CT HEAD/BRAIN WO CON INDICATIONS: SUDDEN HEARING LOSS/HX HEART TRANSPLANT TECHNIQUE: Noncontrast 4.5 mm thick angled axial sections acquired from the foramen magnum to the vertex, with coronal and sagittal reformats. For radiation dose reduction, the following was used: automated exposure control, adjustment of mA and/or kV according to patient size. COMPARISON: None. FINDINGS: Image quality: Excellent. CSF spaces: Basal cisterns are patent. No extra-axial fluid collections. Ventricles are normal in size and shape. Brain: No midline shift. No intracranial masses or hemorrhage. Yao-white matter interface is normal. Skull and face: Calvarium and visualized facial bones are intact, without suspicious lesions. Sinuses: Visualized sinuses and mastoids are clear. IMPRESSION: 1. No acute intracranial process. Dictated by: Argelia Foster M.D. on 01/01/2023 at 16:46 Approved by: Argelia Foster M.D. on 01/01/2023 at 16:46
== END ==
PROVIDERS: PCP Family Medicine; Referring Provider Otolaryngology; Visit Provider Otolaryngology
DX: H91.22 Sudden idiopathic hearing loss, left ear (principal); Z94.1 Heart transplant status
CPT/HCPCS: 70450

== ENCOUNTER → 2023-02-16 11:46 | Outpatient (CLI) | payer MEDICARE, SELFPAY ==
--- NOTE | 2023-02-16 12:14 | DI.DEXA.S_ITS ---
Bone Density Report Name: SONIYA MANUEL Age: 67 Sex: Male Ethnicity: White Date of : 1955 Indication: Encounter for aftercare following heart transplant. Referring Provider: DL LAKHANI Study: Bone densitometry was performed. Exam Date: February 16, 2023 Accession number: [id number] Bone Density: Region BMD T-score Z-score Classification AP Spine(L1-L4) 1.250 1.8 2.3 Normal Femoral Neck (Left) 0.802 -0.4 0.2 Normal Total Hip (Left) 0.961 0.2 0.1 Normal Femoral Neck (Right) 0.854 0.0 0.6 Normal Total Hip (Right) 1.008 0.5 0.5 Normal Total Hip Mean 0.984 0.4 0.3 Normal World Health Organization criteria for BMD impression classify patients as: Normal (T-score at or above -1.0), Osteopenia (T-score between -1.0 and -2.5), or Osteoporosis (T-score at or below -2.5). 10-year Fracture Risk: FRAX not reported because: All T-scores for Spine Total, Hip Total, Femoral Neck at or above -1.0 Impression: The patient has normal bone mass. Discussion: BONE DENSITY IS ABOVE TH E MINIMUM DESIRABLE LEVEL AT ALL SKELETAL SITES TESTED. This patient?s bone mineral density is above the minimum desirable level (T-score -1.0 or better) at all sites measured. The patient should follow a healthful lifestyle (good nutrition with adequate calcium and vitamin D, and appropriate weight-bearing exercise). Follow-Up: Consider repeating this study in 5 years or sooner if there is some new clinical indication. Reported by: AMOL WOODWARD M.D on 02/16/2023 12:24:00 PM.
== END ==
PROVIDERS: PCP Family Medicine; Referring Provider Family Medicine; Visit Provider Family Medicine
DX: Z48.21 Encounter for aftercare following heart transplant (principal); D84.9 Immunodeficiency, unspecified; Z94.1 Heart transplant status; Z79.623 Long term (current) use of mammalian target of rapamycin (mTOR) inhibitor
CPT/HCPCS: 77080

== ENCOUNTER 2023-10-11 01:01 | Emergency (ER) | payer MEDICARE, SELFPAY ==
[2023-10-11] VITALS (7 sets, daily range): BP systolic 129–152; BP diastolic 76–81; PULSE 76–95; RESP 12–17; TEMP 36.6; O2SAT 92–96; BMI 29.8
--- NOTE | 2023-10-11 01:31 | DI.RAD.S_ITS ---
PROCEDURE: XR CHEST 1V INDICATIONS: chest pain TECHNIQUE: One view of the chest was acquired. COMPARISON: [facility], CR, XR CHEST 1V, 06/17/2021, 19:22. [facility], CR, XR CHEST 1V, 03/21/2020, 18:17. FINDINGS: Surgical changes and devices: Sternotomy wires and mediastinal clips are present. Lungs and pleura: Lungs are clear. No pleural effusions or pneumothorax. Mediastinum: Mediastinal contours appear normal. Heart size is normal. Bones and chest wall: No suspicious bony lesions. Overlying soft tissues appear unremarkable. IMPRESSION: No acute cardiopulmonary abnormality is seen. Approved by: Chuy Leija M.D. on 10/11/2023 at 1:42
[2023-10-11 01:38] LABS: INR 0.9 (0.9-1.3); Prothrombin Time 10.2 SECONDS (9.4-12.5)
[2023-10-11 01:42] LABS: Add Manual Diff / Slide Review NO; Alanine Aminotransferase 61 IU/L (<50); Albumin 4.7 g/dL (3.5-5.0); Albumin Globulin Ratio 1.6 (1.0-2.8); Alkaline Phosphatase 99 U/L (38-126); Aspartate Aminotransferase 77 IU/L (17-59); BUN Creatinine Ratio 12.8 (6-22); Basophils Absolute Auto 0 /uL (0-100); Basophils Percent Auto 0.5 % (0-2); Bilirubin Total 1.5 mg/dL (0.2-1.3); Blood Urea Nitrogen 16 mg/dL (9-20); Calcium 9.1 mg/dL (8.4-10.2); Carbon Dioxide 23 mmol/L (22-32); Chloride 106 mmol/L (98-107); Creatine Kinase 289 U/L (55-170); Eosinophils Absolute Auto 100 /uL (0-450); Eosinophils Percent Auto 1.4 % (2-4); Estimated Glomerular Filt Rate > 60 mL/min (>60); Glucose 101 mg/dL (80-110); HEMOLYSIS 23 (0-50); Hematocrit 37.5 % (41-53); Hemoglobin 12.5 g/dL (13.5-17.5); Lipase 63 U/L (23-300); Lymphocytes Absolute Auto 1600 /uL (1100-4500); Lymphocytes Percent Auto 29.2 % (25-40); Mean Corpuscular HGB Conc 33.2 % (30-36); Mean Corpuscular Hemoglobin 31.9 PG (26-34); Mean Corpuscular Volume 96.1 fL (80-100); Monocytes Absolute Auto 800 /uL (0-900); Monocytes Percent Auto 15.3 % (3-14); Neutrophils Absolute Auto 2900 /uL (1500-7000); Neutrophils Percent Auto 53.6 % (50-75); Platelet Count 123 X10^3/uL (150-400); Potassium 4.5 mmol/L (3.4-5.1); Red Cell Distribution Width 16.7 % (11.6-14.8); Sodium 137 mmol/L (137-145); Total Protein 7.7 g/dL (6.3-8.2); White Blood Cell Count 5.4 X10^3/uL (4.5-11.0)
--- NOTE | 2023-10-11 01:42 | ED_ITS ---
HPI - Chest Pain General Chief Complaint: Chest Pain Stated Complaint: heart transplant pt and feeling weird Time Seen by Provider: 10/11/23 01:03 Source: patient Mode of arrival: Ambulatory Limitations: no limitations History of Present Illness HPI narrative: 68yoM with PMH heart transplant in 2016 presents for L sided chest tightness x 3 days. 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 He thinks he may have over exerted himself. Since that time he is felt ?off? on the left side of his body. He states that ever since his heart transplant in 2016 due to the complications experience during surgery and postoperative complications he always has tightness on the left side of his body, but this feels somewhat different. Related Data Home Medications Medication Instructions Recorded Confirmed losartan 50 mg tablet 100 mg PO DAILY 10/11/23 10/11/23 rosuvastatin 1 PO DAILY 10/11/23 Allergies Allergy/AdvReac Type Severity Reaction Status Date / Time Iodinated Contrast Media AdvReac Verified 06/17/21 19:23 Review of Systems Review of Systems Narrative: See HPI Patient History Medical History Heart transplant recipient Lymphadenopathy, anterior cervical Diarrhea Fever CHF (congestive heart failure), NYHA class IV Social History Smoking Status: Former smoker Smoking Status: Former smoker alcohol intake frequency: a few times a week Alcohol type: beer Substance Use Type: does not use Exam Initial Vital Signs Initial Vital Signs: Vital Signs Pulse Rate 95 H 10/11/23 01:19 Respiratory Rate 12 10/11/23 01:19 Blood Pressure 152/76 H 10/11/23 01:19 Pulse Oximetry 94 10/11/23 01:19 Const: Awake, alert, no acute distress, nontoxic appearing Cardiac: regular rate, regular rhythm RESP: unlabored, clear bilaterally, no wheezing GI: Soft, nontender, nondistended, no rebound, no guarding MSK: Atraumatic, full range of motion, pulses equal Skin: Warm, Dry, intact, no rashes Neuro: AO x3, CN II-XII grossly intact, moves all extremities Course Orders Ordered: Discontinued Medications Sodium Chloride (Normal Saline 0.9%) 1,000 mls @ 1,000 mls/hr IV BOLUS ONE Stop: 10/11/23 02:41 Last Infusion: 10/11/23 03:44 Dose: Infused Documented By: Admin: 10/11/23 01:57 Dose: 1,000 mls/hr Documented By: NAVDEEP Vital Signs Vital signs: Vital Signs - 8 hr 10/11/23 01:19 10/11/23 01:19 10/11/23 01:22 Temperature 97.8 F Pulse Rate 95 H 93 H Respiratory Rate 12 Blood Pressure 152/76 H 152/76 H Pulse Oximetry 94 96 Oxygen Delivery Method Room Air 10/11/23 01:30 10/11/23 01:30 10/11/23 02:00 Temperature Pulse Rate 92 H 84 Respiratory Rate 14 17 Blood Pressure 148/76 H Pulse Oximetry 93 92 Oxygen Delivery Method 10/11/23 02:00 10/11/23 02:30 10/11/23 02:30 Temperature Pulse Rate 81 Respiratory Rate 15 Blood Pressure 147/76 H 129/81 Pulse Oximetry 93 Oxygen Delivery Method 10/11/23 03:00 10/11/23 03:00 10/11/23 03:30 Temperature Pulse Rate 80 76 Respiratory Rate 13 12 Blood Pressure 145/78 H Pulse Oximetry 93 93 Oxygen Delivery Method 10/11/23 03:30 Temperature Pulse Rate Respiratory Rate Blood Pressure 140/77 Pulse Oximetry Oxygen Delivery Method MDM - Chest Pain Differential Diagnosis Differential diagnosis: Likely fracture of rib, pneumothorax and stable angina Lab Data 10/11/23 01:15 10/11/23 01:15 Labs: Lab Results 10/11/23 Range/Units 01:15 WBC 5.4 (4.5-11.0) X10^3/uL RBC 3.90 L (4.5-5.9) X10^6/uL Hgb 12.5 L (13.5-17.5) g/dL Hct 37.5 L (41-53) % MCV 96.1 (80-100) fL MCH 31.9 (26-34) PG MCHC 33.2 (30-36) % RDW 16.7 H (11.6-14.8) % Plt Count 123 L (150-400) X10^3/uL Neut % (Auto) 53.6 (50-75) % Lymph % (Auto) 29.2 (25-40) % [place] % (Auto) 15.3 H (3-14) % Eos % (Auto) 1.4 L (2-4) % Baso % (Auto) 0.5 (0-2) % Neut # (Auto) 2900 (2031-1175) /uL Lymph # (Auto) 1600 (0835-7812) /uL [place] # (Auto) 800 (0-900) /uL Eos # (Auto) 100 (0-450) /uL Baso # (Auto) 0 (0-100) /uL PT 10.2 (9.4-12.5) SECONDS INR 0.9 (0.9-1.3) APTT 37 H (25.1-36.5) SECONDS Sodium 137 (137-145) mmol/L Potassium 4.5 (3.4-5.1) mmol/L Chloride 106 (98-107) mmol/L Carbon Dioxide 23 (22-32) mmol/L BUN 16 (9-20) mg/dL Creatinine 1.25 (0.66-1.25) mg/dL Estimated GFR > 60 (>60) mL/min BUN/Creatinine Ratio 12.8 (6-22) Glucose 101 (80-110) mg/dL Calcium 9.1 (8.4-10.2) mg/dL Magnesium 2.0 (1.6-2.3) mg/dL Total Bilirubin 1.5 H (0.2-1.3) mg/dL AST 77 H (17-59) IU/L ALT 61 H (<50) IU/L Alkaline Phosphatase 99 (38-126) U/L Total Creatine Kinase 289 H (55-170) U/L Troponin I 0.016 (0.01-0.034) ng/mL Total Protein 7.7 (6.3-8.2) g/dL Albumin 4.7 (3.5-5.0) g/dL Globulin 3.0 (1.7-4.1) g/dL Albumin/Globulin Ratio 1.6 (1.0-2.8) Lipase 63 (23-300) U/L Imaging Data Chest x-ray: Radiologist's Impression: PROCEDURE: XR CHEST 1V INDICATIONS: chest pain TECHNIQUE: One view of the chest was acquired. COMPARISON: [facility], CR, XR CHEST 1V, 06/17/2021, 19:22. [facility], CR, XR CHEST 1V, 03/21/2020, 18:17. FINDINGS: Surgical changes and devices: Sternotomy wires and mediastinal clips are present. Lungs and pleura: Lungs are clear. No pleural effusions or pneumothorax. Mediastinum: Mediastinal contours appear normal. Heart size is normal. Bones and chest wall: No suspicious bony lesions. Overlying soft tissues appear unremarkable. IMPRESSION: No acute cardiopulmonary abnormality is seen. Approved by: Chuy Leija M.D. on 10/11/2023 at 1:42 MDM Narrative Medical decision making narrative: Well-appearing patient with a left-sided tightness and discomfort that is somewhat different than his usual left-sided tightness. 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 EKG normal sinus rhythm without concerning ischemic findings. Chest x-ray negative for acute findings. Troponin 0.016. Patient reassessed, states that he feels overall ?tired? but he chronically has difficulty sleeping and this is not unusual for him. Patient informed of all lab and imaging findings. He was relieved to know that his labs and chest x-ray looked normal as well as his EKG. I recommended that patient take it easy for the next several days and to follow up with his transplant team if he continues to experience his symptoms. ED return precautions discussed at bedside. Patient expressed understanding of the plan and is in agreement at this time. All questions answered at the time of discharge. Discharge Plan Departure Patient Disposition: Home Clinical Impression: Chest tightness Instructions: DI for Chest Pain Activity Restrictions/Additional Instructions: Follow up with your transplant team if you continue to experience chest tightness and pain. Prescriptions: No Action rosuvastatin 20 mg 1 PO DAILY losartan 50 mg Tablet 100 mg PO DAILY Referrals: Bhaskar Steen MD [Primary Care Provider] - Stand Alone Forms: Patient Portal/API
[2023-10-11 01:46] LABS: PTT Partial Thromboplastin Tim 37 SECONDS (25.1-36.5)
[2023-10-11 01:57] LABS: Troponin I 0.016 ng/mL (0.01-0.034)
[2023-10-11] MEDS: SODIUM CHLORIDE 0.9% 1,000 ML 1000 ML IV (01:57)
== END 2023-10-11 03:46 | disposition home or self-care (01) ==
PROVIDERS: Emergency Provider Emergency Medicine; PCP Family Medicine
DX: R07.9 Chest pain, unspecified (principal)
CPT/HCPCS: 36415; 71045; 80053; 82550; 83690; 83735; 84484; 85025; 85610; 85730; 93005; 93010; 99284

== ENCOUNTER → 2023-11-18 11:13 | Outpatient (CLI) | payer MEDICARE, SELFPAY ==
[2023-11-18 13:54] LABS: BUN Creatinine Ratio 15.3 (6-22); Blood Urea Nitrogen 21 mg/dL (9-20); Calcium 8.9 mg/dL (8.4-10.2); Carbon Dioxide 27 mmol/L (22-32); Chloride 107 mmol/L (98-107); Estimated Glomerular Filt Rate 56 mL/min (>60); Glucose 115 mg/dL (80-110); HEMOLYSIS < 15 (0-50); Sodium 137 mmol/L (137-145)
[2023-11-21 15:07] LABS: Sirolimus 3.3 ng/mL (3.0-20.0)
== END ==
PROVIDERS: PCP Family Medicine; Referring Provider Internal Medicine Cardiovascular Disease; Visit Provider Internal Medicine Cardiovascular Disease
DX: Z94.1 Heart transplant status (principal)
CPT/HCPCS: 36415; 80048; 80195; 80197

== ENCOUNTER → 2024-06-15 09:59 | Outpatient (CLI) | payer MEDICARE, SELFPAY ==
[2024-06-15 11:20] LABS: Alanine Aminotransferase 42 IU/L (<50); Albumin 4.6 g/dL (3.5-5.0); Albumin Globulin Ratio 1.9 (1.0-2.8); Alkaline Phosphatase 90 U/L (38-126); Aspartate Aminotransferase 51 IU/L (17-59); BUN Creatinine Ratio 14.8 (6-22); Bilirubin Total 1.7 mg/dL (0.2-1.3); Blood Urea Nitrogen 19 mg/dL (9-20); Calcium 9.3 mg/dL (8.4-10.2); Carbon Dioxide 24 mmol/L (22-32); Chloride 104 mmol/L (98-107); Estimated Glomerular Filt Rate > 60 mL/min (>60); Globulin 2.4 g/dL (1.7-4.1); Glucose 108 mg/dL (80-110); HEMOLYSIS < 15 (0-50); Magnesium 1.9 mg/dL (1.6-2.3); Potassium 4.9 mmol/L (3.4-5.1); Sodium 137 mmol/L (137-145)
[2024-06-15 12:05] LABS: Add Manual Diff / Slide Review NO; Basophils Absolute Auto 0 /uL (0-100); Eosinophils Absolute Auto 100 /uL (0-450); Eosinophils Percent Auto 1.6 % (2-4); Hematocrit 38.1 % (41-53); Hemoglobin 12.5 g/dL (13.5-17.5); Lymphocytes Absolute Auto 1100 /uL (1100-4500); Mean Corpuscular HGB Conc 32.9 % (30-36); Mean Corpuscular Volume 97.2 fL (80-100); Monocytes Absolute Auto 600 /uL (0-900); Monocytes Percent Auto 13.5 % (3-14); Neutrophils Absolute Auto 2300 /uL (1500-7000); Neutrophils Percent Auto 55.9 % (50-75); Platelet Count 112 X10^3/uL (150-400); Red Blood Cell Count 3.92 X10^6/uL (4.5-5.9); Red Cell Distribution Width 15.2 % (11.6-14.8); White Blood Cell Count 4.1 X10^3/uL (4.5-11.0)
[2024-06-16 07:36] LABS: Sirolimus 3.3 ng/mL (3.0-20.0); Tacrolimus 4.8 ng/mL (2.0-20.0)
== END ==
PROVIDERS: PCP Family Medicine; Referring Provider Internal Medicine Cardiovascular Disease; Visit Provider Internal Medicine Cardiovascular Disease
DX: Z94.1 Heart transplant status (principal); Z48.21 Encounter for aftercare following heart transplant
CPT/HCPCS: 36415; 80053; 80195; 80197; 83735; 85025

== ENCOUNTER → 2024-12-20 13:03 | Outpatient (CLI) | payer MEDICARE, SELFPAY ==
--- NOTE | 2024-12-20 13:06 | DI.RAD.S_ITS ---
PROCEDURE: XR CHEST 2V INDICATIONS: COUGH TECHNIQUE: 2 views of the chest were acquired. COMPARISON: [facility], CR, XR CHEST 1V, 10/11/2023, 1:31. FINDINGS: Heart, mediastinum and pulmonary vascular: Heart is normal in size and configuration. Mediastinum is unremarkable. Pulmonary vascular is normal. Sternotomy changes noted. Lungs: Scattered tiny calcified granulomas appreciated. No infiltrates Pleural spaces: Normal-no effusions or pneumothorax. IMPRESSION: No acute cardiopulmonary disease Dictated by: Epifanio Blake M.D. on 12/21/2024 at 11:53 Approved by: Epifanio Blake M.D. on 12/21/2024 at 11:55
== END ==
PROVIDERS: PCP Family Medicine; Referring Provider Family Medicine; Visit Provider Family Medicine
DX: R05.1 Acute cough (principal); R06.02 Shortness of breath
CPT/HCPCS: 71046

== ENCOUNTER 2024-12-25 01:12 | Emergency (ER) | payer MEDICARE, SELFPAY ==
[2024-12-25] VITALS (11 sets, daily range): BP systolic 145–174; BP diastolic 69–81; PULSE 90–115; RESP 12–20; TEMP 36.6; O2SAT 93–96; BMI 28.7
--- NOTE | 2024-12-25 01:19 | EKG_ITS ---
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
--- NOTE | 2024-12-25 01:22 | DI.RAD.S_ITS ---
PROCEDURE: XR CHEST 1V INDICATIONS: Chest Pain, hypertension TECHNIQUE: One view of the chest was acquired. COMPARISON: [facility], CR, XR CHEST 2V, 12/20/2024, 13:05. [facility], CR, XR CHEST 1V, 10/11/2023, 1:31. FINDINGS: Surgical changes and devices: Sternotomy. Lungs and pleura: Lungs are clear. No pleural effusions or pneumothorax. Mediastinum: Mediastinal contours appear normal. Heart size is normal. Bones and chest wall: No suspicious bony lesions. Overlying soft tissues appear unremarkable. IMPRESSION: No acute cardiopulmonary abnormality is seen. Dictated by: Andrea Palma M.D. on 12/25/2024 at 1:58 Approved by: Andrea Palma M.D. on 12/25/2024 at 1:59
[2024-12-25 01:47] LABS: Add Manual Diff / Slide Review NO; Basophils Absolute Auto 100 /uL (0-100); Basophils Percent Auto 1.4 % (0-2); Eosinophils Absolute Auto 0 /uL (0-450); Hemoglobin 10.8 g/dL (13.5-17.5); Lymphocytes Absolute Auto 900 /uL (1100-4500); Lymphocytes Percent Auto 18.6 % (25-40); Mean Corpuscular HGB Conc 33.6 % (30-36); Mean Corpuscular Hemoglobin 31.7 PG (26-34); Mean Corpuscular Volume 94.4 fL (80-100); Monocytes Absolute Auto 900 /uL (0-900); Monocytes Percent Auto 18.8 % (3-14); Neutrophils Absolute Auto 2800 /uL (1500-7000); Neutrophils Percent Auto 60.2 % (50-75); Platelet Count 116 X10^3/uL (150-400); Red Blood Cell Count 3.39 X10^6/uL (4.5-5.9); Red Cell Distribution Width 15.7 % (11.6-14.8); White Blood Cell Count 4.7 X10^3/uL (4.5-11.0)
--- NOTE | 2024-12-25 01:48 | ED_ITS ---
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 He forgot to take an extra dose of his BP med today.. Patient reports feeling dehydrated and that he has been battling a cold sinus infection for the past 5 weeks and has been on 2 rounds of azithromycin feeling dehydrated at this time. He has no active chest pain shortness of breath dyspnea on exertion fever chills sore throat nausea vomiting diarrhea but does report intermittent coughing episodes with occasional phlegm production. Other than what is stated 14 point review of system is negative. Related Data Home Medications Medication Instructions Recorded Confirmed losartan 50 mg tablet 100 mg PO DAILY 10/11/23 10/11/23 rosuvastatin 1 PO DAILY 10/11/23 Allergies Allergy/AdvReac Type Severity Reaction Status Date / Time Iodinated Contrast Media AdvReac Verified 12/25/24 02:45 Patient History Medical History Heart transplant recipient Lymphadenopathy, anterior cervical Diarrhea Fever CHF (congestive heart failure), NYHA class IV Smoking Status: Never smoker alcohol intake frequency: a few times a week Alcohol type: beer Exam Narrative Exam Narrative: GENERAL: [69] year old patient appears stated age. Well-developed patient, in mild distress. HEAD: Atraumatic. Normocephalic. EYES: Pupils equal round and reactive. Extraocular motions intact. No scleral icterus. No injection or drainage. ENT: Nose without bleeding, purulent drainage. Throat without erythema, tonsillar hypertrophy or exudate. Airway patent. NECK: Trachea midline. Non tender CARDIOVASCULAR: Tachycardic Regular rate and rhythm without murmurs, gallops, or rubs. RESPIRATORY: Clear to auscultation. Breath sounds equal bilaterally. No wheezes, rales, or rhonchi. GASTROINTESTINAL: Abdomen soft, non-tender, nondistended. EXTREMITIES: No edema or joint tenderness. BACK: Nontender without deformity or crepitance. No flank tenderness. NEURO: AOx3. SKIN: No rash or erythema of visible areas Initial Vital Signs Initial Vital Signs: Vital Signs Blood Pressure 174/81 H 12/25/24 01:19 Scores HEART Score Heart Score history: Slightly Suspicious Heart Score EKG: Non-Specific repolarization disturbance Heart Score Age: 45-64 years old Heart Score risk factors: > 3 risk factors or hx of atherosclerotic disease Heart Score troponin: < or = to normal limit Heart Score Total: 4 Course Orders Ordered: ED Orders 12/25/24 01:14 EKG-12 Lead Stat 12/25/24 01:22 XR chest 1V Stat 12/25/24 01:25 Complete Blood Count AUTO DIFF Stat Comprehensive Metabolic Panel Stat Lipase Stat Magnesium Stat NT-proBNP (BNP-Adult 18+) Stat PTT Partial Thromboplastin Ras Stat Prothrombin Time INR Stat Troponin & CK Cardiac Panel Stat Discontinued Medications Aspirin (Aspirin 81 Mg Chew Tab) 324 mg PO NOW ONE Stop: 12/25/24 01:23 Vital Signs Vital signs: Vital Signs - 8 hr 12/25/24 01:19 12/25/24 01:20 12/25/24 01:24 Temperature 97.8 F Pulse Rate 112 H 115 H Respiratory Rate 16 Blood Pressure 174/81 H 174/81 H Pulse Oximetry 95 93 Oxygen Delivery Method Room Air 12/25/24 01:30 Temperature Pulse Rate 105 H Respiratory Rate 13 Blood Pressure Pulse Oximetry 93 Oxygen Delivery Method Medical Decision Making Lab Data 12/25/24 01:25 12/25/24 01:25 Labs: Lab Results 12/25/24 Range/Units 01:25 WBC 4.7 (4.5-11.0) X10^3/uL RBC 3.39 L (4.5-5.9) X10^6/uL Hgb 10.8 L (13.5-17.5) g/dL Hct 32.0 L (41-53) % MCV 94.4 (80-100) fL MCH 31.7 (26-34) PG MCHC 33.6 (30-36) % RDW 15.7 H (11.6-14.8) % Plt Count 116 L (150-400) X10^3/uL Neut % (Auto) 60.2 (50-75) % Lymph % (Auto) 18.6 L (25-40) % [place] % (Auto) 18.8 H (3-14) % Eos % (Auto) 1.0 L (2-4) % Baso % (Auto) 1.4 (0-2) % Neut # (Auto) 2800 (6731-6232) /uL Lymph # (Auto) 900 L (1565-3607) /uL [place] # (Auto) 900 (0-900) /uL Eos # (Auto) 0 (0-450) /uL Baso # (Auto) 100 (0-100) /uL Imaging Data Chest x-ray: Radiologist's Impression: [address] [id number] XRay Report Signed Patient: Ben Montgomery MR#: [id number] : 1955 Acct:[id number] Age/Sex: 69 / M Date of Service: 12/25/24 Loc: ED Accession Number: [id number] Procedure: XR chest 1V Ordering Provider: Epifanio Sandhu D.O. PROCEDURE: XR CHEST 1V INDICATIONS: Chest Pain, hypertension TECHNIQUE: One view of the chest was acquired. COMPARISON: [facility], CR, XR CHEST 2V, 12/20/2024, 13:05. [facility], CR, XR CHEST 1V, 10/11/2023, 1:31. FINDINGS: Surgical changes and devices: Sternotomy. Lungs and pleura: Lungs are clear. No pleural effusions or pneumothorax. Mediastinum: Mediastinal contours appear normal. Heart size is normal. Bones and chest wall: No suspicious bony lesions. Overlying soft tissues appear unremarkable. IMPRESSION: No acute cardiopulmonary abnormality is seen. ECG Data Interpretation: Sinus Tach HR 113 IL 168 QRS [address]-t wave change Change from 10/11/23 [facility] Narrative Medical decision making narrative: All lab work, vital signs, nurse triage note, medication list, and previous ER visits and x-ray all reviewed. Two sets of troponin were normal heart score of 4 BNP was 569 BUN 24 creatinine 1.45 sodium 132 hemoglobin 10.8 chest x-ray showed no acute process. Patient given normal saline 500 mL bolus feels much better on reexamination heart rate now down to 90s and regular.. Differential diagnosis includes dehydration COVID flu RSV STEMI NSTEMI PE pneumonia anemia thyroid issue. Will have patient follow up with PCP this coming week for recheck. Discharge Plan Departure Patient Disposition: Home Clinical Impression: Heart palpitations Instructions: DI for Palpitations Activity Restrictions/Additional Instructions: Return with new or worsening symptoms. Follow up with PCP this week for recheck. Keep hydrated. Prescriptions: No Action rosuvastatin 20 mg 1 PO DAILY losartan 50 mg Tablet 100 mg PO DAILY Referrals: Bhaskar Steen MD [Primary Care Provider] - Stand Alone Forms: Patient Portal/API/Survey
[2024-12-25 01:55] LABS: PTT Partial Thromboplastin Tim 33 SECONDS (25.1-36.5)
[2024-12-25 01:57] LABS: Alanine Aminotransferase 31 IU/L (<50); Albumin 4.4 g/dL (3.5-5.0); Albumin Globulin Ratio 1.5 (1.0-2.8); Alkaline Phosphatase 91 U/L (38-126); Aspartate Aminotransferase 61 IU/L (17-59); BUN Creatinine Ratio 16.6 (6-22); Bilirubin Total 1.2 mg/dL (0.2-1.3); Blood Urea Nitrogen 24 mg/dL (9-20); Carbon Dioxide 22 mmol/L (22-32); Chloride 102 mmol/L (98-107); Creatine Kinase 306 U/L (55-170); Estimated Glomerular Filt Rate 52 mL/min (>60); Glucose 127 mg/dL (70-99); HEMOLYSIS 29 (0-50); Lipase 60 U/L (23-300); Magnesium 1.7 mg/dL (1.6-2.3); Potassium 4.2 mmol/L (3.4-5.1); Sodium 132 mmol/L (137-145); Total Protein 7.4 g/dL (6.3-8.2)
[2024-12-25 02:08] LABS: NT-proBNP (BNP-Adult 18+) 569 pg/mL (<125); Troponin I 0.016 ng/mL (0.01-0.034)
[2024-12-25] MEDS: SODIUM CHLORIDE 0.9% 500 ML IV (02:09)
[2024-12-25 02:56] LABS: Influenza A - CEPHEID Flu A NEGATIVE (NEGATIVE); Influenza B - CEPHEID Flu B NEGATIVE (NEGATIVE); Respiratory Syncytial Virus Negative (Negative)
[2024-12-25 03:21] LABS: COVID-19 CEPHEID 4-PLEX PCR Negative (Negative)
[2024-12-25 03:44] LABS: Troponin I < 0.012 ng/mL (0.01-0.034)
== END 2024-12-25 04:40 | disposition home or self-care (01) ==
PROVIDERS: Emergency Provider Family Medicine; PCP Family Medicine
DX: R00.2 Palpitations (principal); I10 Essential (primary) hypertension; R07.9 Chest pain, unspecified; R05.9 Cough, unspecified
CPT/HCPCS: 0241U; 36415; 71045; 80053; 82550; 83690; 83735; 83880; 84484; 85025; 85610; 85730; 93005; 96360; 96361; 99284

== ENCOUNTER → 2024-12-28 12:52 | Outpatient (CLI) | payer MEDICARE, SELFPAY ==
[2024-12-28 13:54] LABS: Add Manual Diff / Slide Review NO; Basophils Absolute Auto 0 /uL (0-100); Basophils Percent Auto 0.7 % (0-2); Eosinophils Absolute Auto 0 /uL (0-450); Eosinophils Percent Auto 0.9 % (2-4); Hematocrit 32.8 % (41-53); Lymphocytes Absolute Auto 1000 /uL (1100-4500); Lymphocytes Percent Auto 23.4 % (25-40); Mean Corpuscular HGB Conc 33.6 % (30-36); Mean Corpuscular Hemoglobin 31.6 PG (26-34); Monocytes Absolute Auto 1100 /uL (0-900); Monocytes Percent Auto 23.6 % (3-14); Neutrophils Absolute Auto 2300 /uL (1500-7000); Neutrophils Percent Auto 51.4 % (50-75); Platelet Count 127 X10^3/uL (150-400); Red Blood Cell Count 3.48 X10^6/uL (4.5-5.9); Red Cell Distribution Width 15.6 % (11.6-14.8); White Blood Cell Count 4.4 X10^3/uL (4.5-11.0)
[2024-12-28 14:10] LABS: Alanine Aminotransferase 24 IU/L (<50); Albumin 4.2 g/dL (3.5-5.0); Albumin Globulin Ratio 1.6 (1.0-2.8); Alkaline Phosphatase 126 U/L (38-126); Aspartate Aminotransferase 60 IU/L (17-59); BUN Creatinine Ratio 11.9 (6-22); Bilirubin Total 1.6 mg/dL (0.2-1.3); Blood Urea Nitrogen 18 mg/dL (9-20); Carbon Dioxide 27 mmol/L (22-32); Chloride 95 mmol/L (98-107); Estimated Glomerular Filt Rate 49 mL/min (>60); Globulin 2.6 g/dL (1.7-4.1); Glucose 117 mg/dL (70-99); HEMOLYSIS < 15 (0-50); Magnesium 1.8 mg/dL (1.6-2.3); Potassium 4.5 mmol/L (3.4-5.1); Sodium 130 mmol/L (137-145); Total Protein 6.8 g/dL (6.3-8.2)
[2024-12-29 08:11] LABS: Tacrolimus 2.7 ng/mL (5.0-20.0)
== END ==
PROVIDERS: PCP Family Medicine; Referring Provider Internal Medicine Cardiovascular Disease; Visit Provider Internal Medicine Cardiovascular Disease
DX: Z94.1 Heart transplant status (principal)
CPT/HCPCS: 36415; 80053; 80195; 80197; 83735; 85025

== ENCOUNTER → 2025-01-01 09:58 | Outpatient (CLI) | payer MEDICARE, SELFPAY ==
[2025-01-01 10:38] LABS: Hematocrit 30.1 % (41-53); Hemoglobin 9.9 g/dL (13.5-17.5); Mean Corpuscular HGB Conc 32.8 % (30-36); Mean Corpuscular Hemoglobin 30.6 PG (26-34); Mean Corpuscular Volume 93.2 fL (80-100); Platelet Count 118 X10^3/uL (150-400); Red Blood Cell Count 3.23 X10^6/uL (4.5-5.9); Red Cell Distribution Width 15.4 % (11.6-14.8); White Blood Cell Count 2.8 X10^3/uL (4.5-11.0)
[2025-01-01 10:53] LABS: Add Manual Diff / Slide Review YES
[2025-01-01 10:59] LABS: Alanine Aminotransferase 24 IU/L (<50); Albumin 3.9 g/dL (3.5-5.0); Albumin Globulin Ratio 1.6 (1.0-2.8); Alkaline Phosphatase 160 U/L (38-126); Aspartate Aminotransferase 47 IU/L (17-59); BUN Creatinine Ratio 11.7 (6-22); Bilirubin Total 1.2 mg/dL (0.2-1.3); Blood Urea Nitrogen 19 mg/dL (9-20); Carbon Dioxide 26 mmol/L (22-32); Chloride 98 mmol/L (98-107); Estimated Glomerular Filt Rate 45 mL/min (>60); Globulin 2.5 g/dL (1.7-4.1); Glucose 100 mg/dL (70-99); HEMOLYSIS < 15 (0-50); Magnesium 1.9 mg/dL (1.6-2.3); Potassium 4.8 mmol/L (3.4-5.1); Sodium 131 mmol/L (137-145); Total Protein 6.4 g/dL (6.3-8.2)
[2025-01-01 11:16] LABS: Neutrophils Absolute Manual 1400 /uL (3000-5900); RBC Morphology Normal Morphology; Total Cells Counted 100
[2025-01-01 11:17] LABS: Platelet Estimate Decreased on smear
[2025-01-02 06:37] LABS: Sirolimus 1.4 ng/mL (3.0-20.0); Tacrolimus 3.2 ng/mL (5.0-20.0)
== END ==
LOC: LAB 10:00
PROVIDERS: PCP Family Medicine; Referring Provider Internal Medicine Cardiovascular Disease; Visit Provider Internal Medicine Cardiovascular Disease
DX: Z94.1 Heart transplant status (principal)
CPT/HCPCS: 36415; 80053; 80195; 80197; 83735; 85007; 85025

== ENCOUNTER → 2025-04-13 10:14 | Outpatient (CLI) | payer MEDICARE, SELFPAY ==
[2025-02-26 19:47] VITALS: BMI 25.7
[2025-04-13 11:21] LABS: Mean Corpuscular HGB Conc 33.5 % (30-36); Mean Corpuscular Hemoglobin 34.9 PG (26-34); Mean Corpuscular Volume 104.0 fL (80-100); Platelet Count 62 X10^3/uL (150-400)
[2025-04-13 11:36] LABS: Alanine Aminotransferase 38 IU/L (<50); Albumin 3.7 g/dL (3.5-5.0); Albumin Globulin Ratio 1.8 (1.0-2.8); Alkaline Phosphatase 101 U/L (38-126); Blood Urea Nitrogen 30 mg/dL (9-20); Calcium 8.7 mg/dL (8.4-10.2); Carbon Dioxide 29 mmol/L (22-32); Chloride 105 mmol/L (98-107); Estimated Glomerular Filt Rate > 60 mL/min (>60); Globulin 2.1 g/dL (1.7-4.1); Glucose 108 mg/dL (70-99); HEMOLYSIS < 15 (0-50); Potassium 4.4 mmol/L (3.4-5.1); Sodium 140 mmol/L (137-145); Total Protein 5.8 g/dL (6.3-8.2)
[2025-04-13 12:25] LABS: Add Manual Diff / Slide Review YES; Hematocrit 19.2 % (41-53); Hemoglobin 6.4 g/dL (13.5-17.5)
[2025-04-13 12:54] LABS: Anisocytosis 1+; Lymphocytes Percent Manual 10.0 % (25-45); Monocytes Percent Manual 10.0 % (2-11); Neutrophils Absolute Manual 960 /uL (3000-5900); Segmented Neutrophils Percent 80.0 % (38-70); Total Cells Counted 10
== END ==
PROVIDERS: PCP Family Medicine; Referring Provider Family Medicine; Visit Provider Internal Medicine Hematology & Oncology
DX: C83.30 Diffuse large B-cell lymphoma, unspecified site (principal)
CPT/HCPCS: 36415; 80053; 85007; 85025

== ENCOUNTER 2025-04-13 12:58 | Emergency (ER) | payer MEDICARE, SELFPAY ==
[2025-02-26 19:47] VITALS: BMI 25.7
[2025-04-13] VITALS (38 sets, daily range): BP systolic 87–155; BP diastolic 50–83; PULSE 72–98; RESP 11–21; TEMP 36.8–37.1; O2SAT 93–98; BMI 25.0
[2025-04-13 13:58] LABS: Add Manual Diff / Slide Review NO; Hematocrit 18.4 % (41-53); Hemoglobin 6.1 g/dL (13.5-17.5); Lymphocytes Absolute Auto 200 /uL (1100-4500); Mean Corpuscular HGB Conc 33.0 % (30-36); Mean Corpuscular Hemoglobin 34.2 PG (26-34); Mean Corpuscular Volume 103.7 fL (80-100); Platelet Count 59 X10^3/uL (150-400)
[2025-04-13 13:59] LABS: Blood Urea Nitrogen 32 mg/dL (9-20); Calcium 8.6 mg/dL (8.4-10.2); Carbon Dioxide 27 mmol/L (22-32); Chloride 105 mmol/L (98-107); Estimated Glomerular Filt Rate > 60 mL/min (>60); Glucose 103 mg/dL (70-99); HEMOLYSIS < 15 (0-50); Potassium 4.5 mmol/L (3.4-5.1); Sodium 138 mmol/L (137-145)
[2025-04-13 14:31] LABS: Anisocytosis 1+
--- NOTE | 2025-04-13 15:20 | ED.RECABL ---
HPI - Recheck/Abnormal Lab/Rx General Chief Complaint: Recheck/Abnormal Lab/Rx Stated Complaint: Sent from PCP, Needs Transfusion Time Seen by Provider: 04/13/25 13:04 Source: patient and other Mode of arrival: Ambulatory History of Present Illness HPI narrative: Patient seen by [facility] in [place]. Has B-cell lymphoma. Has had 3 treatments of chemotherapy. Patient has had irradiated packed red blood cells in the past, this year due to chemotherapy. Patient had blood drawn by his cancer treatment team today and was told to come here for transfusion. Patient denies any symptoms no black or bloody stools. No shortness of breath no dizziness no syncope. Related Data Home Medications ?Medication ?Instructions ?Recorded ?Confirmed losartan 50 mg tablet 50 mg PO BID 10/11/23 02/26/25 rosuvastatin 1 tab PO DAILY 10/11/23 02/26/25 acyclovir 400 mg tablet 400 mg PO BID 02/26/25 02/26/25 oxycodone 10 mg tablet 10 mg PO 3XD PRN pain (scale score 02/26/25 02/26/25 4-6) pantoprazole 40 mg tablet,delayed 40 mg PO DAILY 02/26/25 02/26/25 release potassium chloride 20 mEq 20 meq PO 4XD 02/26/25 02/26/25 tablet,extended release(part/cryst) Allergies Allergy/AdvReac Type Severity Reaction Status Date / Time Iodinated Contrast Media AdvReac Verified 02/26/25 16:28 Review of Systems Review of Systems Narrative: GENERAL: Negative chills, fatigue, malaise, fever, sweats. HEENT: Negative sinus pain, ear pain, sore throat RESPIRATORY: Negative dyspnea, cough CARDIOVASCULAR: Negative chest pain, palpitations GASTROINTESTINAL: Negative vomiting, nausea, abdominal pain : Negative dysuria, frequency, hematuria MUSCULOSKELETAL: Negative muscle or bony pain SKIN: Negative rash, skin lesions NEUROLOGIC: Negative weakness, numbness ROS Unobtainable: All systems reviewed & are unremarkable except as noted in HPI and below Patient History Medical History Heart transplant recipient Lymphadenopathy, anterior cervical Diarrhea Fever CHF (congestive heart failure), NYHA class IV Social History household members: significant other alcohol intake: current Smoking Status: Never smoker alcohol intake frequency: a few times a week Alcohol type: beer Exam Narrative Exam Narrative: GENERAL: in no distress, not toxic not dyspneic HEAD: Normocephalic. EYES: Pupils equal round, pale conjunctiva ENT: Mucous membranes moist. NECK: Trachea midline. CARDIOVASCULAR: Regular rate and rhythm RESPIRATORY: Clear to auscultation. Breath sounds equal bilaterally. No wheezes, rales, or rhonchi. GASTROINTESTINAL: Abdomen soft, non-tender EXTREMITIES: No gross deformities. BACK: No flank tenderness. NEURO: AOx4. Clear speech SKIN: Warm and dry PSYCH: Not anxious, is cooperative Initial Vital Signs Initial Vital Signs: Vital Signs Pulse Rate 98 H 04/13/25 13:12 Blood Pressure 155/69 H 04/13/25 13:12 Pulse Oximetry 97 04/13/25 13:12 Course Orders Ordered: ED Orders 04/13/25 13:35 BMP [Basic Metabolic Panel] Stat CBC Auto Diff [Complete Blood Count AUTO DIFF] Stat PRBC [Packed Cells] Stat Type and Screen Stat Vital Signs Vital signs: Vital Signs - 8 hr 04/13/25 14:30 04/13/25 14:30 04/13/25 14:33 Temperature Pulse Rate 94 H Respiratory Rate 12 Blood Pressure 87/50 L 113/56 L Pulse Oximetry 93 Oxygen Delivery Method 04/13/25 14:33 04/13/25 15:00 04/13/25 15:00 Temperature Pulse Rate 93 H 88 Respiratory Rate 17 14 Blood Pressure 125/60 Pulse Oximetry 96 97 Oxygen Delivery Method 04/13/25 15:30 04/13/25 15:30 04/13/25 18:01 Temperature Pulse Rate 85 Respiratory Rate 13 Blood Pressure 132/67 135/73 Pulse Oximetry 98 Oxygen Delivery Method 04/13/25 18:01 04/13/25 18:09 04/13/25 18:09 Temperature 98.4 F Pulse Rate 93 H 92 H Respiratory Rate 21 16 Blood Pressure 137/74 137/74 Pulse Oximetry 97 Oxygen Delivery Method 04/13/25 18:09 04/13/25 18:30 04/13/25 18:30 Temperature 98.4 F Pulse Rate 91 H 72 Respiratory Rate 14 16 Blood Pressure 137/64 131/62 Pulse Oximetry 97 Oxygen Delivery Method 04/13/25 18:30 04/13/25 18:34 04/13/25 18:34 Temperature Pulse Rate 87 87 Respiratory Rate 14 Blood Pressure 137/66 Pulse Oximetry 96 97 Oxygen Delivery Method 04/13/25 19:00 04/13/25 19:00 04/13/25 19:30 Temperature Pulse Rate 87 Respiratory Rate 13 Blood Pressure 131/66 142/66 H Pulse Oximetry 96 Oxygen Delivery Method 04/13/25 19:30 04/13/25 19:39 04/13/25 19:39 Temperature Pulse Rate 91 H 97 H Respiratory Rate 17 20 Blood Pressure 135/65 Pulse Oximetry 97 98 Oxygen Delivery Method 04/13/25 19:52 04/13/25 19:53 04/13/25 19:53 Temperature 98.3 F Pulse Rate 82 82 Respiratory Rate 16 18 Blood Pressure 128/67 128/67 Pulse Oximetry 97 Oxygen Delivery Method 04/13/25 19:55 04/13/25 19:55 04/13/25 19:55 Temperature 98.3 F Pulse Rate 83 83 Respiratory Rate 16 15 Blood Pressure 126/66 126/66 Pulse Oximetry 97 Oxygen Delivery Method 04/13/25 20:00 04/13/25 20:00 04/13/25 20:05 Temperature Pulse Rate 85 84 Respiratory Rate 13 16 Blood Pressure 129/70 Pulse Oximetry 97 97 Oxygen Delivery Method 04/13/25 20:05 04/13/25 20:10 04/13/25 20:10 Temperature Pulse Rate 86 Respiratory Rate 13 Blood Pressure 119/69 119/71 Pulse Oximetry 97 Oxygen Delivery Method 04/13/25 20:15 04/13/25 20:15 04/13/25 20:20 Temperature Pulse Rate 86 85 Respiratory Rate 14 14 Blood Pressure 125/64 Pulse Oximetry 97 97 Oxygen Delivery Method 04/13/25 20:20 04/13/25 20:25 04/13/25 20:25 Temperature Pulse Rate 91 H Respiratory Rate 16 Blood Pressure 125/64 121/66 Pulse Oximetry 98 Oxygen Delivery Method 04/13/25 20:30 04/13/25 20:30 04/13/25 20:35 Temperature Pulse Rate 85 Respiratory Rate 14 Blood Pressure 127/68 125/70 Pulse Oximetry 98 Oxygen Delivery Method 04/13/25 20:35 04/13/25 20:40 04/13/25 20:40 Temperature Pulse Rate 84 86 Respiratory Rate 16 17 Blood Pressure 136/74 Pulse Oximetry 98 98 Oxygen Delivery Method 04/13/25 20:45 04/13/25 20:45 04/13/25 20:50 Temperature Pulse Rate 83 Respiratory Rate 14 Blood Pressure 128/70 126/68 Pulse Oximetry 97 Oxygen Delivery Method 04/13/25 20:50 04/13/25 20:55 04/13/25 20:55 Temperature Pulse Rate 83 83 Respiratory Rate 13 14 Blood Pressure 125/71 Pulse Oximetry 97 96 Oxygen Delivery Method 04/13/25 21:00 04/13/25 21:00 04/13/25 21:05 Temperature Pulse Rate 83 Respiratory Rate 14 Blood Pressure 129/83 129/74 Pulse Oximetry 97 Oxygen Delivery Method 04/13/25 21:05 04/13/25 21:10 04/13/25 21:10 Temperature Pulse Rate 84 82 Respiratory Rate 14 13 Blood Pressure 130/66 Pulse Oximetry 97 97 Oxygen Delivery Method 04/13/25 21:15 04/13/25 21:15 04/13/25 21:19 Temperature 98.7 F Pulse Rate 82 82 Respiratory Rate 16 16 Blood Pressure 130/71 130/71 Pulse Oximetry 98 Oxygen Delivery Method Room Air MDM - Recheck/Abnormal Lab/Rx Lab Data 04/13/25 13:35 04/13/25 13:35 Labs: Lab Results 04/13/25 Range/Units 13:35 WBC 1.1 L* (4.5-11.0) X10^3/uL RBC 1.77 L (4.5-5.9) X10^6/uL Hgb 6.1 L* (13.5-17.5) g/dL Hct 18.4 L* (41-53) % MCV 103.7 H (80-100) fL MCH 34.2 H (26-34) PG MCHC 33.0 (30-36) % RDW 20.4 H (11.6-14.8) % Plt Count 59 L (150-400) X10^3/uL Neut % (Auto) 60.9 (50-75) % Lymph % (Auto) 16.9 L (25-40) % [place] % (Auto) 19.0 H (3-14) % Eos % (Auto) 1.4 L (2-4) % Baso % (Auto) 1.8 (0-2) % Neut # (Auto) 700 L (2674-4937) /uL Lymph # (Auto) 200 L (9047-2550) /uL [place] # (Auto) 200 (0-900) /uL Eos # (Auto) 0 (0-450) /uL Baso # (Auto) 0 (0-100) /uL RBC Morphology See below Anisocytosis 1+ H Sodium 138 (137-145) mmol/L Potassium 4.5 (3.4-5.1) mmol/L Chloride 105 (98-107) mmol/L Carbon Dioxide 27 (22-32) mmol/L BUN 32 H (9-20) mg/dL Creatinine 0.93 (0.66-1.25) mg/dL Estimated GFR > 60 (>60) mL/min BUN/Creatinine Ratio 34.4 H (6-22) Glucose 103 H (70-99) mg/dL Calcium 8.6 (8.4-10.2) mg/dL Blood Type O Positive Antibody Screen Negative Crossmatch See Detail MDM Narrative Medical decision making narrative: Patient seen by [facility] in [place]. Has B-cell lymphoma. Has had 3 treatments of chemotherapy. Patient has had irradiated packed red blood cells in the past, this year due to chemotherapy. Patient had blood drawn by his cancer treatment team today and was told to come here for transfusion. Patient denies any symptoms no black or bloody stools. No shortness of breath no dizziness no syncope. MDM After history and exam, CBC CMP, blood transfusion Differential considered: Includes but not limited to immediate secondary to chemotherapy Medical records reviewed: ER visit here February 26, 2025 Lab Test results independently reviewed as above. Pertinent findings: WBC 1.1 hemoglobin 6.1 hematocrit 18 platelets 59 Consultations: 4:[address] Gonzalez, [facility], reviewed laboratory studies with him. Agrees, patient can be discharged home after transfusions. Re-evaluations: 10:00 p.m.. Patient tolerated transfusions very well. No side effects or reactions or allergic reactions. He desires discharge home. Discussion: Appropriate for discharge home. Exam is reassuring return precautions reviewed with patient. He desires discharge home. Diagnosis: Anemia Critical Care Time Critical Care Time Attestation: Critical Care Time 35 minutes: Critical care time is separate from other billable procedures. This critical care time includes consultation with patient and other consulting doctors, review of records, and interpretation of data from labs, blood transfusion provided Discharge Plan Departure Patient Disposition: Home Clinical Impression: Anemia Qualifiers: Anemia type: unspecified type Qualified Code(s): D64.9 - Anemia, unspecified Instructions: Anemia Activity Restrictions/Additional Instructions: Your exam is reassuring. You have received 2 units of blood today. Please see your oncology team next week for re-evaluation and recheck blood work. Return if worse if any questions or concerns. You may continue home medications. Prescriptions: No Action rosuvastatin 20 mg 1 tab PO DAILY losartan 50 mg Tablet 50 mg PO BID acyclovir 400 mg tablet 400 mg PO BID oxycodone 10 mg tablet 10 mg PO 3XD PRN (Reason: pain (scale score 4-6)) potassium chloride 20 mEq tablet,ER particles/crystals 20 meq PO 4XD pantoprazole 40 mg tablet,delayed release (DR/EC) 40 mg PO DAILY Referrals: Bhaskar Steen MD [Primary Care Provider, Family Practice] Stand Alone Forms: Patient Portal/API
== END 2025-04-13 22:13 | disposition home or self-care (01) ==
PROVIDERS: Emergency Medicine; Emergency Provider Emergency Medicine; PCP Family Medicine
DX: C83.30 Diffuse large B-cell lymphoma, unspecified site (principal); D63.8 Anemia in other chronic diseases classified elsewhere
CPT/HCPCS: 36415; 36430; 80048; 80053; 85007; 85025; 86850; 86900; 86901; 86945; 99284; 99291; P9016

== ENCOUNTER → 2025-04-17 12:54 | Outpatient (CLI) | payer MEDICARE, SELFPAY ==
[2025-02-26 19:47] VITALS: BMI 25.7
[2025-04-17 13:12] LABS: Add Manual Diff / Slide Review NO; Hematocrit 26.7 % (41-53); Hemoglobin 9.0 g/dL (13.5-17.5); Lymphocytes Absolute Auto 200 /uL (1100-4500); Mean Corpuscular HGB Conc 33.5 % (30-36); Mean Corpuscular Hemoglobin 33.7 PG (26-34); Mean Corpuscular Volume 100.5 fL (80-100); Platelet Count 92 X10^3/uL (150-400)
[2025-04-17 13:20] LABS: Anisocytosis 2+
[2025-04-17 14:03] LABS: Alanine Aminotransferase 22 IU/L (<50); Albumin 4.1 g/dL (3.5-5.0); Albumin Globulin Ratio 1.9 (1.0-2.8); Alkaline Phosphatase 106 U/L (38-126); Blood Urea Nitrogen 17 mg/dL (9-20); Calcium 8.8 mg/dL (8.4-10.2); Carbon Dioxide 25 mmol/L (22-32); Chloride 105 mmol/L (98-107); Estimated Glomerular Filt Rate > 60 mL/min (>60); Globulin 2.2 g/dL (1.7-4.1); Glucose 117 mg/dL (70-99); HEMOLYSIS < 15 (0-50); Potassium 4.2 mmol/L (3.4-5.1); Sodium 138 mmol/L (137-145); Total Protein 6.3 g/dL (6.3-8.2)
== END ==
PROVIDERS: PCP Family Medicine; Referring Provider Family Medicine; Visit Provider Family Medicine
DX: C83.30 Diffuse large B-cell lymphoma, unspecified site (principal)
CPT/HCPCS: 36415; 80053; 83615; 85025

== ENCOUNTER → 2025-04-25 11:09 | Outpatient (CLI) | payer MEDICARE, SELFPAY ==
[2025-02-26 19:47] VITALS: BMI 25.7
[2025-04-25 12:10] LABS: Hematocrit 28.2 % (41-53); Hemoglobin 9.4 g/dL (13.5-17.5); Mean Corpuscular HGB Conc 33.5 % (30-36); Mean Corpuscular Hemoglobin 33.8 PG (26-34); Mean Corpuscular Volume 101.2 fL (80-100); Platelet Count 93 X10^3/uL (150-400)
[2025-04-25 12:27] LABS: Alanine Aminotransferase 18 IU/L (<50); Albumin 4.1 g/dL (3.5-5.0); Albumin Globulin Ratio 1.8 (1.0-2.8); Alkaline Phosphatase 94 U/L (38-126); Blood Urea Nitrogen 19 mg/dL (9-20); Calcium 9.1 mg/dL (8.4-10.2); Carbon Dioxide 26 mmol/L (22-32); Chloride 107 mmol/L (98-107); Estimated Glomerular Filt Rate > 60 mL/min (>60); Globulin 2.3 g/dL (1.7-4.1); Glucose 112 mg/dL (70-99); HEMOLYSIS < 15 (0-50); Potassium 4.4 mmol/L (3.4-5.1); Sodium 140 mmol/L (137-145); Total Protein 6.4 g/dL (6.3-8.2)
[2025-04-25 14:01] LABS: Add Manual Diff / Slide Review YES
[2025-04-25 14:03] LABS: Anisocytosis 1+; Band Neutrophils Percent 1.0 % (3-7); Lymphocytes Percent Manual 18.0 % (25-45); Macrocytosis 1+; Monocytes Percent Manual 17.0 % (2-11); Neutrophils Absolute Manual 1235 /uL (3000-5900); Segmented Neutrophils Percent 64.0 % (38-70); Total Cells Counted 100
[2025-04-25 14:05] LABS: Tear Drop Cells 1+
== END ==
PROVIDERS: PCP Family Medicine
DX: C83.30 Diffuse large B-cell lymphoma, unspecified site (principal)
CPT/HCPCS: 36415; 80053; 83615; 85007; 85025

== ENCOUNTER → 2025-05-03 09:32 | Outpatient (CLI) | payer MEDICARE, SELFPAY ==
[2025-02-26 19:47] VITALS: BMI 25.7
[2025-05-03 10:41] LABS: Add Manual Diff / Slide Review NO; Hematocrit 27.5 % (41-53); Hemoglobin 9.1 g/dL (13.5-17.5); Lymphocytes Absolute Auto 300 /uL (1100-4500); Mean Corpuscular HGB Conc 33.0 % (30-36); Mean Corpuscular Hemoglobin 33.8 PG (26-34); Mean Corpuscular Volume 102.5 fL (80-100); Platelet Count 47 X10^3/uL (150-400)
[2025-05-03 11:14] LABS: Alanine Aminotransferase 25 IU/L (<50); Albumin 3.7 g/dL (3.5-5.0); Albumin Globulin Ratio 1.9 (1.0-2.8); Alkaline Phosphatase 109 U/L (38-126); Globulin 2.0 g/dL (1.7-4.1); HEMOLYSIS < 15 (0-50); Total Protein 5.7 g/dL (6.3-8.2)
[2025-05-03 14:14] LABS: Blood Urea Nitrogen 27 mg/dL (9-20); Calcium 8.4 mg/dL (8.4-10.2); Carbon Dioxide 30 mmol/L (22-32); Chloride 102 mmol/L (98-107); Estimated Glomerular Filt Rate > 60 mL/min (>60); Glucose 91 mg/dL (70-99); Potassium 4.3 mmol/L (3.4-5.1); Sodium 138 mmol/L (137-145)
== END ==
PROVIDERS: PCP Family Medicine; Referring Provider Family Medicine
DX: C83.30 Diffuse large B-cell lymphoma, unspecified site (principal)
CPT/HCPCS: 36415; 80048; 80076; 83615; 85025

== ENCOUNTER → 2025-05-24 12:09 | Outpatient (CLI) | payer MEDICARE, SELFPAY ==
[2025-02-26 19:47] VITALS: BMI 25.7
[2025-05-24 12:44] LABS: Hematocrit 27.9 % (41-53); Hemoglobin 9.1 g/dL (13.5-17.5); Mean Corpuscular HGB Conc 32.8 % (30-36); Mean Corpuscular Hemoglobin 33.8 PG (26-34); Mean Corpuscular Volume 103.2 fL (80-100)
[2025-05-24 12:45] LABS: Add Manual Diff / Slide Review YES
[2025-05-24 13:07] LABS: Alanine Aminotransferase 27 IU/L (<50); Albumin 3.8 g/dL (3.5-5.0); Albumin Globulin Ratio 1.8 (1.0-2.8); Alkaline Phosphatase 87 U/L (38-126); Blood Urea Nitrogen 27 mg/dL (9-20); Calcium 8.6 mg/dL (8.4-10.2); Carbon Dioxide 29 mmol/L (22-32); Chloride 102 mmol/L (98-107); Estimated Glomerular Filt Rate > 60 mL/min (>60); Globulin 2.1 g/dL (1.7-4.1); Glucose 106 mg/dL (70-99); HEMOLYSIS < 15 (0-50); Potassium 3.8 mmol/L (3.4-5.1); Sodium 137 mmol/L (137-145); Total Protein 5.9 g/dL (6.3-8.2)
[2025-05-24 13:22] LABS: Anisocytosis 1+; Band Neutrophils Percent 1.0 % (3-7); Basophils Percent Manual 2.0 % (0-1); Lymphocytes Percent Manual 14.0 % (25-45); Macrocytosis 1+; Metamyelocytes Percent 4.0 % (-0); Monocytes Percent Manual 10.0 % (2-11); Myelocytes Percent 1.0 % (-0); Neutrophils Absolute Manual 1518 /uL (3000-5900); Segmented Neutrophils Percent 68.0 % (38-70); Total Cells Counted 100
[2025-05-24 14:13] LABS: Platelet Count 84 X10^3/uL (150-400)
== END ==
PROVIDERS: PCP Family Medicine; Referring Provider Internal Medicine Hematology & Oncology; Visit Provider Internal Medicine Hematology & Oncology
DX: C83.30 Diffuse large B-cell lymphoma, unspecified site (principal)
CPT/HCPCS: 36415; 80048; 80076; 83615; 85007; 85025

== ENCOUNTER → 2025-06-14 13:56 | Outpatient (CLI) | payer MEDICARE, SELFPAY ==
[2025-02-26 19:47] VITALS: BMI 25.7
[2025-06-14 14:44] LABS: Hematocrit 22.8 % (41-53); Hemoglobin 7.6 g/dL (13.5-17.5); Mean Corpuscular HGB Conc 33.1 % (30-36); Mean Corpuscular Hemoglobin 33.8 PG (26-34); Mean Corpuscular Volume 102.2 fL (80-100); Platelet Count 37 X10^3/uL (150-400)
[2025-06-14 15:15] LABS: Alanine Aminotransferase 20 IU/L (<50); Albumin 3.7 g/dL (3.5-5.0); Albumin Globulin Ratio 1.9 (1.0-2.8); Alkaline Phosphatase 85 U/L (38-126); Blood Urea Nitrogen 17 mg/dL (9-20); Calcium 8.4 mg/dL (8.4-10.2); Carbon Dioxide 29 mmol/L (22-32); Chloride 104 mmol/L (98-107); Estimated Glomerular Filt Rate > 60 mL/min (>60); Globulin 2.0 g/dL (1.7-4.1); Glucose 141 mg/dL (70-99); HEMOLYSIS < 15 (0-50); Potassium 4.0 mmol/L (3.4-5.1); Sodium 140 mmol/L (137-145); Total Protein 5.7 g/dL (6.3-8.2)
== END ==
PROVIDERS: PCP Family Medicine; Referring Provider Internal Medicine Hematology & Oncology; Visit Provider Internal Medicine Hematology & Oncology
DX: C83.30 Diffuse large B-cell lymphoma, unspecified site (principal)
CPT/HCPCS: 36415; 80048; 80076; 83615; 85025

== ENCOUNTER 2025-06-15 09:17 | Emergency (ER) | payer MEDICARE, SELFPAY ==
[2025-02-26 19:47] VITALS: BMI 25.7
[2025-06-15] VITALS (31 sets, daily range): BP systolic 110–163; BP diastolic 52–77; PULSE 70–105; RESP 14–28; TEMP 36.5–36.9; O2SAT 93–98; BMI 27.1
--- NOTE | 2025-06-15 09:28 | ED_ITS ---
HPI - Recheck/Abnormal Lab/Rx General Chief Complaint: Recheck/Abnormal Lab/Rx Stated Complaint: Needs Blood transfusion , sent from [facility] Time Seen by Provider: 06/15/25 09:22 Source: patient Mode of arrival: Ambulatory History of Present Illness HPI narrative: patient and has B-cell lymphoma. [facility] [place] Sent here for hemoglobin 7.3 done outpatient yesterday. Patient had his chemotherapy last and usually on the day he starts feeling fevers tired and achy. Which he did on Wednesday night. He feels much better today. He was sent here for blood transfusion. Patient seen here April 13, 2025 for the same. Patient denies any black or bloody stools. No cough cold or congestion. Related Data Home Medications ?Medication ?Instructions ?Recorded ?Confirmed losartan 50 mg tablet 50 mg PO BID 10/11/23 rosuvastatin 1 tab PO DAILY 10/11/2301/31 acyclovir 400 mg tablet 400 mg PO BID 02/26/2502/26 oxycodone 10 mg tablet 10 mg PO 3XD PRN pain (scale score 02/26/25 02/26/25 4-6) pantoprazole 40 mg tablet,delayed 40 mg PO DAILY 02/2602/26/25 release potassium chloride 20 mEq 20 meq PO 4XD 02/26/2502/26 tablet,extended release(part/cryst) Allergies Allergy/AdvReac Type Severity Reaction Status Date / Time Iodinated Contrast Media AdvReac Verified 02/26/25 16:28 Review of Systems Review of Systems Narrative: GENERAL: Positive chills, fatigue, malaise, fever, sweats. HEENT: Negative sinus pain, ear pain, sore throat RESPIRATORY: Negative dyspnea, cough CARDIOVASCULAR: Negative chest pain, palpitations GASTROINTESTINAL: Negative vomiting, nausea, abdominal pain : Negative dysuria, frequency, hematuria MUSCULOSKELETAL: Negative muscle or bony pain SKIN: Negative rash, skin lesions NEUROLOGIC: Negative weakness, numbness ROS Unobtainable: All systems reviewed & are unremarkable except as noted in HPI and below Patient History Medical History Heart transplant recipient Lymphadenopathy, anterior cervical Diarrhea Fever CHF (congestive heart failure), NYHA class IV Social History household members: significant other alcohol intake: current alcohol intake frequency: a few times a week Alcohol type: beer Exam Narrative Exam Narrative: GENERAL: in no distress, not toxic not dyspneic HEAD: Normocephalic. EYES: Pupils equal round slightly pale conjunctiva ENT: Mucous membranes moist. NECK: Trachea midline. CARDIOVASCULAR: Regular rate and rhythm RESPIRATORY: Clear to auscultation. Breath sounds equal bilaterally. No wheezes, rales, or rhonchi. GASTROINTESTINAL: Abdomen soft, non-tender BACK: No flank tenderness. EXTREMITIES: No gross deformities. NEURO: AOx4. Clear speech SKIN: Warm and dry PSYCH: Not anxious, is cooperative Initial Vital Signs Initial Vital Signs: Vital Signs Temperature 97.7 F 06/15/25 09:23 Pulse Rate 105 H 06/15/25 09:23 Respiratory Rate 18 06/15/25 09:23 Blood Pressure 162/72 H 06/15/25 09:23 Pulse Oximetry 98 06/15/25 09:23 Oxygen Delivery Method Room Air 06/15/25 09:23 Course Orders Ordered: Discontinued Medications Heparin Sodium (Porcine) (Heparin 500 Unit/5 Ml Port Flush) 500 unit IV PRN PRN PRN Reason: Flush Last Admin: 06/15/25 21:32 Dose: 500 unit Documented By: AB Vital Signs Vital signs: Vital Signs - 8 hr 06/15/25 09:23 06/15/25 09:33 06/15/25 09:33 Temperature 97.7 F Pulse Rate 105 H 96 H Respiratory Rate 18 17 Blood Pressure 162/72 H 145/64 H Pulse Oximetry 98 97 Oxygen Delivery Method Room Air 06/15/25 10:00 06/15/25 10:00 06/15/25 10:30 Temperature Pulse Rate 94 H 91 H Respiratory Rate 22 18 Blood Pressure 135/61 Pulse Oximetry 97 93 Oxygen Delivery Method 06/15/25 10:30 06/15/25 11:00 06/15/25 11:00 Temperature Pulse Rate 96 H Respiratory Rate 17 Blood Pressure 110/52 L 110/57 L Pulse Oximetry 95 Oxygen Delivery Method 06/15/25 11:30 06/15/25 11:31 06/15/25 11:31 Temperature Pulse Rate 95 H 93 H Respiratory Rate 17 23 Blood Pressure 142/63 H Pulse Oximetry 94 96 Oxygen Delivery Method MDM - Recheck/Abnormal Lab/Rx Lab Data 06/15/25 09:57 06/15/25 09:57 Labs: Lab Results 06/15/25 06/15/25 Range/Units 09:57 10:10 WBC 0.6 L* (4.5-11.0) X10^3/uL RBC 1.92 L (4.5-5.9) X10^6/uL Hgb 6.5 L* (13.5-17.5) g/dL Hct 19.6 L* (41-53) % MCV 101.9 H (80-100) fL MCH 34.0 (26-34) PG MCHC 33.3 (30-36) % RDW 16.4 H (11.6-14.8) % Plt Count 35 L* (150-400) X10^3/uL Neut % (Auto) 38.8 L (50-75) % Lymph % (Auto) 25.2 (25-40) % [place] % (Auto) 31.5 H (3-14) % Eos % (Auto) 3.4 (2-4) % Baso % (Auto) 1.1 (0-2) % Neut # (Auto) 200 L (0413-4224) /uL Lymph # (Auto) 200 L (2273-1979) /uL [place] # (Auto) 200 (0-900) /uL Eos # (Auto) 0 (0-450) /uL Baso # (Auto) 0 (0-100) /uL RBC Morphology Normal morphology Polychromasia 1+ H Microcytosis 1+ H Macrocytosis 1+ H Tear Drop Cells 1+ H PT 12.2 (9.4-12.5) SECONDS INR 1.1 (0.9-1.3) APTT 29 (25.1-36.5) SECONDS Sodium 138 (137-145) mmol/L Potassium 3.9 (3.4-5.1) mmol/L Chloride 106 (98-107) mmol/L Carbon Dioxide 27 (22-32) mmol/L BUN 16 (9-20) mg/dL Creatinine 0.95 (0.66-1.25) mg/dL Estimated GFR > 60 (>60) mL/min BUN/Creatinine Ratio 16.8 (6-22) Glucose 121 H (70-99) mg/dL Calcium 8.3 L (8.4-10.2) mg/dL Total Bilirubin 0.6 (0.2-1.3) mg/dL AST 22 (17-59) IU/L ALT 18 (<50) IU/L Alkaline Phosphatase 77 (38-126) U/L Total Protein 5.8 L (6.3-8.2) g/dL Albumin 3.6 (3.5-5.0) g/dL Globulin 2.2 (1.7-4.1) g/dL Albumin/Globulin Ratio 1.6 (1.0-2.8) Blood Type O Positive Antibody Screen Negative Crossmatch See Detail MDM Narrative Medical decision making narrative: patient and has B-cell lymphoma. [facility] [place] Sent here for hemoglobin 7.3 done outpatient yesterday. Patient had his chemotherapy last and usually on the 6 day he starts feeling fevers tired and achy. Which he did on Wednesday night. He feels much better today. He was sent here for blood transfusion. Patient seen here April 13, 2025 for the same. Patient denies any black or bloody stools. No cough cold or congestion MDM After history and exam, CBC CMP PT INR type and crossmatch for irradiated PRBCs 2 units Differential considered: Includes but not limited to recurrent anemia Medical records reviewed: April 13, 2025 ER visit here for transfusion Lab Test results independently reviewed as above. Pertinent findings: WBC 0.6 hemoglobin 6.5 hematocrit 19.6 platelets 35 INR 1.1 sodium 138 potassium 3.9 BUN 16 creatinine 0.95 glucose 121 Consultations: 11:25 a.m.. I spoke with Dr. Ellison, oncology with [facility]. Patient was prescribed Levaquin yesterday as prophylaxis. No further workup for his fever chills the other day. This is his typical reaction to chemotherapy 6 days later. Re-evaluations: 11:33 a.m.. Updated patient laboratory results. Hemoglobin 6.5. He has already started Levaquin that was prescribed to him yesterday by Dr. Gonzalez's team oncology. Discussion: appropriate for discharge home. Patient hemodynamically stable. Patient here just for transfusion. Patient is on Levaquin as instructed by his oncologist. Return precautions reviewed and he desires discharge home after transfusions. Diagnosis: Anemia Discharge Plan Departure Patient Disposition: Home Clinical Impression: Neutropenia Qualifiers: Neutropenia type: unspecified Qualified Code(s): D70.9 - Neutropenia, unspecified Anemia Qualifiers: Anemia type: unspecified type Qualified Code(s): D64.9 - Anemia, unspecified Instructions: Anemia Activity Restrictions/Additional Instructions: glad you are feeling better. 2 units of blood was transfused, irradiated. Please see your oncologist next week for re-evaluation. Return if worse if any questions or concerns. Continue your home medications and Levaquin antibiotic. Return if worse if any questions or concerns Prescriptions: No Action rosuvastatin 20 mg 1 tab PO DAILY losartan 50 mg Tablet 50 mg PO BID acyclovir 400 mg tablet 400 mg PO BID oxycodone 10 mg tablet 10 mg PO 3XD PRN (Reason: pain (scale score 4-6)) potassium chloride 20 mEq tablet,ER particles/crystals 20 meq PO 4XD pantoprazole 40 mg tablet,delayed release (DR/EC) 40 mg PO DAILY Referrals: Bhaskar Steen MD [Primary Care Provider, Family Practice] Stand Alone Forms: Patient Portal/API
[2025-06-15 10:11] LABS: Add Manual Diff / Slide Review NO; Lymphocytes Absolute Auto 200 /uL (1100-4500); Mean Corpuscular HGB Conc 33.3 % (30-36); Mean Corpuscular Hemoglobin 34.0 PG (26-34); Mean Corpuscular Volume 101.9 fL (80-100)
[2025-06-15 10:20] LABS: Hematocrit 19.6 % (41-53); Hemoglobin 6.5 g/dL (13.5-17.5); INR 1.1 (0.9-1.3); Platelet Count 35 X10^3/uL (150-400); Prothrombin Time 12.2 SECONDS (9.4-12.5)
[2025-06-15 10:22] LABS: PTT Partial Thromboplastin Tim 29 SECONDS (25.1-36.5)
[2025-06-15 10:23] LABS: Alanine Aminotransferase 18 IU/L (<50); Albumin 3.6 g/dL (3.5-5.0); Albumin Globulin Ratio 1.6 (1.0-2.8); Alkaline Phosphatase 77 U/L (38-126); Blood Urea Nitrogen 16 mg/dL (9-20); Calcium 8.3 mg/dL (8.4-10.2); Carbon Dioxide 27 mmol/L (22-32); Chloride 106 mmol/L (98-107); Estimated Glomerular Filt Rate > 60 mL/min (>60); Globulin 2.2 g/dL (1.7-4.1); Glucose 121 mg/dL (70-99); HEMOLYSIS < 15 (0-50); Potassium 3.9 mmol/L (3.4-5.1); Sodium 138 mmol/L (137-145); Total Protein 5.8 g/dL (6.3-8.2)
[2025-06-15 11:15] LABS: Macrocytosis 1+; Microcytosis 1+; Polychromasia 1+; RBC Morphology Normal Morphology; Tear Drop Cells 1+
== END 2025-06-15 21:33 | disposition home or self-care (01) ==
PROVIDERS: Emergency Provider Emergency Medicine; PCP Family Medicine
DX: D70.9 Neutropenia, unspecified (principal); D64.9 Anemia, unspecified; C85.10 Unspecified B-cell lymphoma, unspecified site; Z92.21 Personal history of antineoplastic chemotherapy
CPT/HCPCS: 36415; 36430; 80053; 85025; 85610; 85730; 86850; 86900; 86901; 86945; 99284; 99285; P9016; J1642

== ENCOUNTER → 2025-06-20 10:46 | Outpatient (CLI) | payer MEDICARE, SELFPAY ==
[2025-02-26 19:47] VITALS: BMI 25.7
[2025-06-20 11:13] LABS: Hematocrit 28.4 % (41-53); Hemoglobin 9.5 g/dL (13.5-17.5); Mean Corpuscular HGB Conc 33.5 % (30-36); Mean Corpuscular Hemoglobin 33.6 PG (26-34); Mean Corpuscular Volume 100.2 fL (80-100); Platelet Count 72 X10^3/uL (150-400)
[2025-06-20 11:18] LABS: Add Manual Diff / Slide Review YES
[2025-06-20 11:30] LABS: Alanine Aminotransferase 16 IU/L (<50); Albumin 4.1 g/dL (3.5-5.0); Albumin Globulin Ratio 1.9 (1.0-2.8); Alkaline Phosphatase 90 U/L (38-126); Blood Urea Nitrogen 14 mg/dL (9-20); Calcium 8.9 mg/dL (8.4-10.2); Carbon Dioxide 27 mmol/L (22-32); Chloride 106 mmol/L (98-107); Estimated Glomerular Filt Rate > 60 mL/min (>60); Globulin 2.2 g/dL (1.7-4.1); Glucose 99 mg/dL (70-99); HEMOLYSIS < 15 (0-50); Potassium 4.0 mmol/L (3.4-5.1); Sodium 140 mmol/L (137-145); Total Protein 6.3 g/dL (6.3-8.2)
[2025-06-20 11:51] LABS: Band Neutrophils Percent 25.0 % (3-7); Basophils Percent Manual 1.0 % (0-1); Eosinophils Percent Manual 1.0 % (2-4); Lymphocytes Percent Manual 12.0 % (25-45); Metamyelocytes Percent 2.0 % (-0); Monocytes Percent Manual 11.0 % (2-11); Myelocytes Percent 1.0 % (-0); Neutrophils Absolute Manual 1440 /uL (3000-5900); Segmented Neutrophils Percent 47.0 % (38-70); Total Cells Counted 100
[2025-06-20 11:55] LABS: Anisocytosis 1+; Macrocytosis 1+; Tear Drop Cells 1+; Toxic Granulation Present
== END ==
PROVIDERS: PCP Family Medicine
DX: C83.30 Diffuse large B-cell lymphoma, unspecified site (principal)
CPT/HCPCS: 36415; 80053; 83615; 85007; 85025

== ENCOUNTER → 2025-06-26 11:00 | Outpatient (CLI) | payer MEDICARE, SELFPAY ==
[2025-02-26 19:47] VITALS: BMI 25.7
[2025-06-26 12:23] LABS: Add Manual Diff / Slide Review NO; Hematocrit 28.9 % (41-53); Hemoglobin 9.7 g/dL (13.5-17.5); Lymphocytes Absolute Auto 300 /uL (1100-4500); Mean Corpuscular HGB Conc 33.5 % (30-36); Mean Corpuscular Hemoglobin 34.0 PG (26-34); Mean Corpuscular Volume 101.4 fL (80-100); Platelet Count 74 X10^3/uL (150-400)
[2025-06-26 12:51] LABS: Alanine Aminotransferase 16 IU/L (<50); Albumin 3.9 g/dL (3.5-5.0); Albumin Globulin Ratio 1.9 (1.0-2.8); Alkaline Phosphatase 101 U/L (38-126); Blood Urea Nitrogen 15 mg/dL (9-20); Calcium 8.7 mg/dL (8.4-10.2); Carbon Dioxide 26 mmol/L (22-32); Chloride 106 mmol/L (98-107); Estimated Glomerular Filt Rate > 60 mL/min (>60); Globulin 2.1 g/dL (1.7-4.1); Glucose 137 mg/dL (70-99); HEMOLYSIS < 15 (0-50); Potassium 4.1 mmol/L (3.4-5.1); Sodium 140 mmol/L (137-145); Total Protein 6.0 g/dL (6.3-8.2)
== END ==
PROVIDERS: PCP Family Medicine; Referring Provider Family Medicine; Visit Provider Orthopaedic Surgery
DX: C83.30 Diffuse large B-cell lymphoma, unspecified site (principal)
CPT/HCPCS: 36415; 80053; 83615; 85025

== ENCOUNTER → 2025-07-03 13:48 | Outpatient (CLI) | payer MEDICARE, SELFPAY ==
[2025-02-26 19:47] VITALS: BMI 25.7
[2025-07-03 14:44] LABS: Hematocrit 32.2 % (41-53); Hemoglobin 10.7 g/dL (13.5-17.5); Mean Corpuscular HGB Conc 33.2 % (30-36); Mean Corpuscular Hemoglobin 33.6 PG (26-34); Mean Corpuscular Volume 101.1 fL (80-100); Platelet Count 92 X10^3/uL (150-400)
[2025-07-03 14:50] LABS: Add Manual Diff / Slide Review YES
[2025-07-03 15:07] LABS: Band Neutrophils Percent 3.0 % (3-7); Basophils Percent Manual 4.0 % (0-1); Eosinophils Percent Manual 1.0 % (2-4); Lymphocytes Percent Manual 29.0 % (25-45); Monocytes Percent Manual 32.0 % (2-11); Neutrophils Absolute Manual 442 /uL (3000-5900); Segmented Neutrophils Percent 31.0 % (38-70); Total Cells Counted 100
[2025-07-03 15:10] LABS: Anisocytosis 1+
[2025-07-03 15:26] LABS: Alanine Aminotransferase 17 IU/L (<50); Albumin 4.4 g/dL (3.5-5.0); Albumin Globulin Ratio 2.0 (1.0-2.8); Alkaline Phosphatase 90 U/L (38-126); Blood Urea Nitrogen 13 mg/dL (9-20); Calcium 9.0 mg/dL (8.4-10.2); Carbon Dioxide 23 mmol/L (22-32); Chloride 106 mmol/L (98-107); Estimated Glomerular Filt Rate > 60 mL/min (>60); Globulin 2.2 g/dL (1.7-4.1); Glucose 145 mg/dL (70-99); HEMOLYSIS 29 (0-50); Potassium 4.3 mmol/L (3.4-5.1); Sodium 139 mmol/L (137-145); Total Protein 6.6 g/dL (6.3-8.2)
== END ==
PROVIDERS: PCP Family Medicine
DX: C83.30 Diffuse large B-cell lymphoma, unspecified site (principal)
CPT/HCPCS: 36415; 80053; 83615; 85007; 85025

== ENCOUNTER → 2025-07-10 11:36 | Outpatient (CLI) | payer MEDICARE, SELFPAY ==
[2025-02-26 19:47] VITALS: BMI 25.7
[2025-07-10 12:38] LABS: Add Manual Diff / Slide Review NO; Hematocrit 30.9 % (41-53); Hemoglobin 10.3 g/dL (13.5-17.5); Lymphocytes Absolute Auto 400 /uL (1100-4500); Mean Corpuscular HGB Conc 33.2 % (30-36); Mean Corpuscular Hemoglobin 33.3 PG (26-34); Mean Corpuscular Volume 100.3 fL (80-100); Platelet Count 76 X10^3/uL (150-400)
[2025-07-10 12:59] LABS: Alanine Aminotransferase 15 IU/L (<50); Albumin 4.1 g/dL (3.5-5.0); Albumin Globulin Ratio 1.9 (1.0-2.8); Alkaline Phosphatase 95 U/L (38-126); Blood Urea Nitrogen 15 mg/dL (9-20); Calcium 9.0 mg/dL (8.4-10.2); Carbon Dioxide 25 mmol/L (22-32); Chloride 108 mmol/L (98-107); Estimated Glomerular Filt Rate > 60 mL/min (>60); Globulin 2.2 g/dL (1.7-4.1); Glucose 117 mg/dL (70-99); HEMOLYSIS < 15 (0-50); Potassium 4.2 mmol/L (3.4-5.1); Sodium 141 mmol/L (137-145); Total Protein 6.3 g/dL (6.3-8.2)
== END ==
PROVIDERS: PCP Family Medicine
DX: C83.30 Diffuse large B-cell lymphoma, unspecified site (principal)
CPT/HCPCS: 36415; 80053; 83615; 85025

== ENCOUNTER → 2025-07-24 16:01 | Outpatient (CLI) | payer MEDICARE, SELFPAY ==
[2025-02-26 19:47] VITALS: BMI 25.7
[2025-07-24 16:46] LABS: Add Manual Diff / Slide Review NO; Hematocrit 34.6 % (41-53); Hemoglobin 11.2 g/dL (13.5-17.5); Lymphocytes Absolute Auto 700 /uL (1100-4500); Mean Corpuscular HGB Conc 32.5 % (30-36); Mean Corpuscular Hemoglobin 32.3 PG (26-34); Mean Corpuscular Volume 99.4 fL (80-100); Platelet Count 55 X10^3/uL (150-400)
[2025-07-24 17:06] LABS: Alanine Aminotransferase 12 IU/L (<50); Albumin 4.4 g/dL (3.5-5.0); Albumin Globulin Ratio 2.0 (1.0-2.8); Alkaline Phosphatase 116 U/L (38-126); Blood Urea Nitrogen 14 mg/dL (9-20); Calcium 9.0 mg/dL (8.4-10.2); Carbon Dioxide 28 mmol/L (22-32); Chloride 101 mmol/L (98-107); Estimated Glomerular Filt Rate > 60 mL/min (>60); Globulin 2.2 g/dL (1.7-4.1); Glucose 118 mg/dL (70-99); HEMOLYSIS < 15 (0-50); Potassium 4.0 mmol/L (3.4-5.1); Sodium 137 mmol/L (137-145); Total Protein 6.6 g/dL (6.3-8.2)
== END ==
PROVIDERS: PCP Family Medicine
DX: C83.30 Diffuse large B-cell lymphoma, unspecified site (principal)
CPT/HCPCS: 36415; 80053; 83615; 85025

== ENCOUNTER → 2025-07-30 13:52 | Outpatient (CLI) | payer MEDICARE, SELFPAY ==
[2025-02-26 19:47] VITALS: BMI 25.7
[2025-07-30 14:40] LABS: Add Manual Diff / Slide Review NO; Hematocrit 30.8 % (41-53); Hemoglobin 10.3 g/dL (13.5-17.5); Lymphocytes Absolute Auto 400 /uL (1100-4500); Mean Corpuscular HGB Conc 33.5 % (30-36); Mean Corpuscular Hemoglobin 33.1 PG (26-34); Mean Corpuscular Volume 98.8 fL (80-100); Platelet Count 81 X10^3/uL (150-400)
[2025-07-30 15:00] LABS: Alanine Aminotransferase 15 IU/L (<50); Albumin 4.4 g/dL (3.5-5.0); Albumin Globulin Ratio 2.0 (1.0-2.8); Alkaline Phosphatase 101 U/L (38-126); Blood Urea Nitrogen 21 mg/dL (9-20); Calcium 9.0 mg/dL (8.4-10.2); Carbon Dioxide 28 mmol/L (22-32); Chloride 103 mmol/L (98-107); Estimated Glomerular Filt Rate > 60 mL/min (>60); Globulin 2.2 g/dL (1.7-4.1); Glucose 109 mg/dL (70-99); HEMOLYSIS < 15 (0-50); Potassium 4.2 mmol/L (3.4-5.1); Sodium 139 mmol/L (137-145); Total Protein 6.6 g/dL (6.3-8.2)
== END ==
PROVIDERS: PCP Family Medicine; Referring Provider Internal Medicine Hematology & Oncology; Visit Provider Internal Medicine Hematology & Oncology
DX: C83.30 Diffuse large B-cell lymphoma, unspecified site (principal)
CPT/HCPCS: 36415; 80053; 83615; 85025